=== PATIENT | male | born 1970 | race Caucasian/White ===

== ENCOUNTER 2016-12-02 13:00 | Outpatient (RCR) | payer OTHER ==
[~2016-12-02 13:00] MED LIST: CYCL10TA PO; LEXA1TAB2 PO; LISI-538 PO; PROZ20CA11 PO; VIST50CA PO; campral PO
== END 2016-12-08 ==
LOC: M PT 13:00
PROVIDERS: ATTEND Orthopaedic Surgery
DX: Z51.89 Encounter for other specified aftercare (principal); M48.06 Spinal stenosis, lumbar region

== ENCOUNTER 2017-04-09 21:41 | Emergency (ER) | payer OTHER ==
[~2017-04-09] VITALS: Ht 167.6 cm; Wt 100.0 kg
[2017-04-09] MEDS ORDERED: PERCOCET 5MG/325MG TAB PO ONE (22:30)
[2017-04-09] MEDS ORDERED: ONDANSETRON 4 MG ORAL DISINTEGRATING TAB (S0181) PO ONE (22:30)
--- NOTE | 2017-04-09 23:10 | REP ---
Clinical: Flank pain with history of nephrolithiasis. Comparison: 03/15/2016. Findings: Lung bases are relatively clear. Visualized heart and pericardium are normal. Hepatomegaly and fatty infiltration to the liver is appreciated without focal hepatic lesion identified. Spleen, pancreas, gallbladder, by lateral adrenal glands and kidneys are normal for noncontrast evaluation. Specifically, no acute perinephric stranding, hydroureteronephrosis, intrarenal, or obstructing ureteral calculi are identified. The enteric system is without obstruction or acute inflammatory process. Normal terminal ileum and appendix are identified in the right lower quadrant. Pelvis demonstrates normal bladder and mildly prominent prostate gland with parenchymal calcifications noted. No pelvic fluid or ascites. No free air. No intraperitoneal or retroperitoneal adenopathy. Abdominal aorta without aneurysm. Musculoskeletal structures demonstrate age-related degenerative changes along with evidence for posterior fixation at the L3-4 level. Impression: 1. Hepatomegaly and fatty infiltration to the liver without focal hepatic lesion. 2. Relatively normal appearance to the urinary tract system by noncontrast evaluation. 3. No acute abdominopelvic pathology appreciated. No free fluid. No mass. No free air. No adenopathy. Signed by Khari Zavala MD 04/09/2017 11:02 P
[2017-04-09 23:30] VITALS: BP 181/123
[2017-04-09] MEDS ORDERED: LISINOPRIL 20 MG TAB PO ONE (23:30)
[2017-04-09] MEDS ORDERED: ROBA500T PO (23:51)
[2017-04-10] MEDS ORDERED: METHOCARBAMOL 500 MG TAB PO ONE
[2017-04-10 00:25] VITALS: BP 146/100
== END 2017-04-10 00:26 | disposition home or self-care (01) ==
LOC: M ED 21:41
DX: M62.830 Muscle spasm of back (principal); I10 Essential (primary) hypertension
CPT/HCPCS: 74176; 96372; 99283; J3360

== ENCOUNTER → 2017-04-10 | Outpatient (REF) | payer OTHER ==
[~2017-04-10] MED LIST changes: +ROBA500T PO
[2017-04-10 13:15] LABS: MICROSCOPIC INDICATED? MAN NO (NO)
== END ==
LOC: M WUC 12:46
PROVIDERS: ATTEND Physician Assistant
DX: M54.5 Low back pain (principal)

== ENCOUNTER → 2017-07-30 | Outpatient (CLI) | payer OTHER ==
[2017-07-30 12:42] LABS: BLOOD UREA NITROGEN 10 MG/DL (7-18); CREATININE FOR GFR 0.89 MG/DL (0.70-1.30); GLOMERULAR FILTRATION RATE > 60.0 (>60)
== END ==
LOC: M LAB 11:11
PROVIDERS: ATTEND Orthopaedic Surgery
DX: M51.16 Intervertebral disc disorders with radiculopathy, lumbar region (principal)

== ENCOUNTER → 2017-12-02 | Outpatient (CLI) | payer OTHER ==
[~2017-12-02] MED LIST changes: -CYCL10TA PO; -LEXA1TAB2 PO; -LISI-538 PO; +PROHANCE 279.3MG/ML 15ML VIAL (A9576) As Ordered; +PROHANCE 279.3MG/ML 5ML VIAL (A9576) As Ordered; -PROZ20CA11 PO; -ROBA500T PO; -VIST50CA PO; -campral PO
== END ==
LOC: M RAD 08:44
DX: M96.1 Postlaminectomy syndrome, not elsewhere classified (principal); G89.29 Other chronic pain; M46.1 Sacroiliitis, not elsewhere classified; M51.26 Other intervertebral disc displacement, lumbar region; M48.061 Spinal stenosis, lumbar region without neurogenic claudication; M12.88 Other specific arthropathies, not elsewhere classified, other specified site; M51.06 Intervertebral disc disorders with myelopathy, lumbar region; M51.27 Other intervertebral disc displacement, lumbosacral region
CPT/HCPCS: A9576

== ENCOUNTER → 2018-11-10 | Outpatient (CLI) | payer OTHER ==
[~2018-11-10] MED LIST changes: +CYCL10TA PO; +LEXA1TAB2 PO; +LISI-538 PO; -PROHANCE 279.3MG/ML 15ML VIAL (A9576) As Ordered; -PROHANCE 279.3MG/ML 5ML VIAL (A9576) As Ordered; +PROZ20CA11 PO; +ROBA500T PO; +VIST50CA PO; +campral PO
[2018-11-10 14:15] LABS: BLOOD UREA NITROGEN 10 MG/DL (7-18); CREATININE FOR GFR 1.27 MG/DL (0.70-1.30); GLOMERULAR FILTRATION RATE > 60.0 (>60)
== END ==
LOC: M LAB 13:10
PROVIDERS: ATTEND Orthopaedic Surgery
DX: M51.36 Other intervertebral disc degeneration, lumbar region (principal)

== ENCOUNTER → 2018-11-13 | Outpatient (CLI) | payer OTHER ==
[~2018-11-13] MED LIST changes: +PROHANCE 279.3MG/ML 15ML VIAL (A9576) As Ordered ONE; +PROHANCE 279.3MG/ML 5ML VIAL (A9576) As Ordered ONE
--- NOTE | 2018-11-13 12:51 | REP ---
MR LUMBAR SPINE WITHOUT AND WITH CONTRAST: HISTORY: Post laminectomy syndrome. CONTRAST: ProHance 18 mL. COMPARISON: 12/02/2017 Decreased signal intensity on T2-weighted images is present in the L2-3 through L5-S1 intervertebral discs. The disc are decreased in height. These findings are consistent with disc degeneration. There is no disc bulge or herniation at the L1-2 level. The L1 nerve exit the neural foramina without compression. A diffuse disc bulge is present at the L2-3 level. There is hypertrophy of the ligamenta flava and posterior articulating facets. These findings produce mild central canal stenosis. A small right intraforaminal disc protrusion is present. There is compression of the right L2 nerve in the neural foramen. The left L2 nerve exits the neural foramen without compression. The patient is status post L3-4 anterior and posterior spinal fusion. Metal hardware and bone graft material are present. A diffuse disc bulge and small central disc protrusion are present. There is hypertrophy of the ligamenta flava and posterior articulating facets. These findings produce mild central canal stenosis. The L3 nerves exit the neural foramina without compression. A diffuse disc bulge is present at the L4-5 level. There is hypertrophy of the ligamenta flava and posterior articulating facets. These findings produce mild central canal stenosis. The L4 nerves exit the neural foramina without compression. A diffuse disc bulge and small disc protrusion central and eccentric to the right are present at the L5-S1 level. The disc protrusion abuts the thecal sac. There is hypertrophy of the posterior articulating facets. The L5 nerves exit the neural foramina without compression . The conus medullaris is normal in appearance terminating at the level of the L1-2 intervertebral disc. Increased signal intensity on T2-weighted images is present in the endplates of the L2 through L5 vertebral bodies. This represent degenerative change. There is no subluxation. IMPRESSION: 1. Mild central canal stenosis at the L2-3 level secondary to disc bulge, ligamentous and facet hypertrophy. A small right intraforaminal disc protrusion is present. There is compression of the right L2 nerve in the neural foramen. 2. The patient is status post L3-4 anterior and posterior spinal fusion. There is mild central canal stenosis secondary to disc bulge, disc protrusion, ligamentous and facet hypertrophy. There is anatomical alignment. 3. Mild central canal stenosis at the L4-5 level secondary to disc bulge, ligamentous and facet hypertrophy. 4. Diffuse disc bulge and small disc protrusion at the L5-S1 level. The disc protrusion abuts the thecal sac. There is no significant change compared to the previous study. Electronically Signed by Giovanny Wolfe MD 11/13/2018 01:29 P
== END ==
LOC: M RAD 10:09
PROVIDERS: ATTEND Orthopaedic Surgery
DX: M51.26 Other intervertebral disc displacement, lumbar region (principal); M48.061 Spinal stenosis, lumbar region without neurogenic claudication; M51.27 Other intervertebral disc displacement, lumbosacral region; Z98.1 Arthrodesis status
CPT/HCPCS: 72158; A9576

== ENCOUNTER → 2018-11-30 | Outpatient (REF) | payer OTHER ==
[~2018-11-30] MED LIST changes: -PROHANCE 279.3MG/ML 15ML VIAL (A9576) As Ordered ONE; -PROHANCE 279.3MG/ML 5ML VIAL (A9576) As Ordered ONE
[2018-11-30 18:16] LABS: BASO # 0.1 10^3/uL (0.0-0.2); BASO % 1.2 % (0.0-1.0); EOS # 0.4 10^3/uL (0.0-0.50); EOS % 4.4 % (0.0-3.0); HEMATOCRIT 38.2 % (42.0-52.0); HEMOGLOBIN 12.9 g/dl (13.5-17.5); LYMPH # 1.3 10^3/uL (1.5-4.5); LYMPH % 15.1 % (24.0-44.0); MEAN CORPUSCULAR HEMOGLOBIN 29.4 pg (27.0-33.0); MEAN CORPUSCULAR HGB CONC 33.8 g/dl (32.0-36.5); MONO # 0.9 10^3/uL (0.0-0.8); NEUTROPHILS # 5.7 10^3/uL (1.8-7.7); NEUTROPHILS % 66.5 % (36.0-66.0); PLATELET COUNT, AUTOMATED 337 10^3/uL (150-450); RED BLOOD COUNT 4.39 10^6/uL (4.30-6.10); WHITE BLOOD COUNT 8.5 10^3/uL (4.0-10.0)
[2018-11-30 18:30] LABS: ALBUMIN 3.8 GM/DL (3.2-5.2); ALT/SGPT 245 U/L (12-78); BILIRUBIN,TOTAL 0.5 MG/DL (0.2-1.0); BLOOD UREA NITROGEN 10 MG/DL (7-18); CALCIUM LEVEL 8.6 MG/DL (8.5-10.1); CARBON DIOXIDE LEVEL 22 MEQ/L (21-32); CHLORIDE LEVEL 107 MEQ/L (98-107); CHOLESTEROL LEVEL 290 MG/DL (<200); CHOLESTEROL RISK RATIO 5.686 (<5); GLOMERULAR FILTRATION RATE > 60.0 (>60); GLUCOSE, FASTING 122 MG/DL (70-100); HDL CHOLESTEROL 51 MG/DL (>40); NON-HDL-C 239 MG/DL; POTASSIUM SERUM 4.3 MEQ/L (3.5-5.1); SODIUM LEVEL 138 MEQ/L (136-145); THYROID STIMULATING HORMONE 0.892 uIU/ML (0.358-3.740); TOTAL PROTEIN 7.3 GM/DL (6.4-8.2); TRIGLYCERIDES LEVEL 425 MG/DL (<150)
[2018-11-30 18:32] LABS: TOTAL 25(OH) VITAMIN D 12.4 NG/ML (30.0-100.0)
[2018-11-30 19:01] LABS: HEMOGLOBIN A1c 6.1 %
== END ==
LOC: M LAB REF 16:55
PROVIDERS: ATTEND Nurse Practitioner Family
DX: I10 Essential (primary) hypertension (principal); Z13.9 Encounter for screening, unspecified

== ENCOUNTER → 2019-05-12 | Outpatient (CLI) | payer OTHER ==
[~2019-05-12] MED LIST changes: +ALEV220T22 PO; +BACL10TA2 PO; +GABA600T4 PO; +TRAM1CAP15 PO
== END ==
LOC: M LAB 10:47
PROVIDERS: ATTEND Orthopaedic Surgery
DX: Z01.818 Encounter for other preprocedural examination (principal)

== ENCOUNTER 2019-06-01 07:46 | Inpatient (IN) | payer OTHER ==
--- NOTE | 2019-05-21 15:11 | HPE ---
DATE OF ADMISSION: 06/01/2019 CHIEF COMPLAINT: Lumbar degenerative disc disease and spondylosis with radiculopathy. HISTORY OF PRESENT ILLNESS: Hi is a pleasant, 48-year-old male who has had a previous lumbar fusion at L3-4. He has progressed to involving L4-5. He has failed to improve with conservative treatment. He has elected for surgery for his continued symptoms. He has pain with weightbearing activities and his activities of daily living. X-rays of the lumbar spine show increasing degenerative disc disease at L4-5. He has consented for L3, L4 and L5 interbody fusion with revision at L3-4. This will be by Dr. Richard Hollis. Medical optimization was performed by Dr. Pilar Howard. ALLERGIES: NO KNOWN DRUG ALLERGIES. CURRENT MEDICATIONS: - Lisinopril 20 mg a day - Prozac 20 mg a day - hydroxyzine 50 mg a day - Aleve as needed - baclofen 10 mg three times a day - gabapentin 600 mg three times a day - tramadol 50 mg as needed PAST MEDICAL HISTORY: Includes hypertension and anxiety and depression. PAST SURGICAL HISTORY: Includes his previous L3-4 fusion. SOCIAL HISTORY: This gentleman is unemployed. Does not smoke. Rarely drinks alcohol. FAMILY HISTORY: Noncontributory. REVIEW OF SYSTEMS: This patient denies chest pain, heart palpitations, cough, wheezing, difficulty breathing and shortness of breath. He denies recent upper respiratory infection or urinary tract infection symptoms. He does complain of persistent pain in the low back with radiculopathy. PHYSICAL EXAMINATION: General: He is a well-nourished, well-developed, in no acute distress, alert male. He ambulates with a moderate limp favoring his left side. He is not using assistive devices. Vital signs: He is 67 inches tall, weighs 215 pounds with a temperature of 97.0, blood pressure 138/86, pulse of 65 and respirations of 18. Neck was supple without adenopathy or jugular venous distension. Lungs were clear to auscultation without rales or wheeze throughout. Heart: Regular rate and rhythm. Abdomen: Bowel sounds were present. Extremities/examination of the back revealed intact skin. He has pain in the low back. Deep tendon reflexes (DTRs) absent in the ankles, trace at the knees. Does have intact sensation to light touch. LABORATORY DATA: Hemoglobin 13.6. IMPRESSION: Lumbar degenerative disc disease with bilateral lower extremity radiculopathy status post L3-4 fusion. PLAN: Plan will be for revision of fusion at L3-4 and L4-5. This will be performed by Dr. Richard Hollis. For further information please see the medical record.
[~2019-06-01] VITALS: Ht 170.2 cm; Wt 100.2 kg
[~2019-06-01 07:46] MED LIST changes: +CelecoXIB (CeleBREX) 100 MG CAP PO ONE; +GABAPENTIN 300 MG CAP PO ONE; +LR 1,000 ML IV ONE; +PERCOCET 5MG/325MG TAB PO ONE
[2019-06-01] MEDS ORDERED: BUPIVACAINE/EPIN 0.25% 30 ML VIAL As Ordered ONE (11:14)
[2019-06-01] MEDS ORDERED: THROMBIN SOLN 20,000 UNITS KIT As Ordered ONE (11:14)
[2019-06-01] MEDS ORDERED: BUPIVACAINE HCL 0.5% 10 ML VIAL As Ordered ONE (11:15)
[2019-06-01] MEDS ORDERED: TRANEXAMIC ACID 100 MG/ML 10ML VIAL As Ordered ONE ×2 (11:15→15:01)
[2019-06-01] MEDS ORDERED: VANCOMYCIN HCL 500 MG/10 ML VIAL (J3370) As Ordered ONE (11:16)
[2019-06-01] MEDS ORDERED: EPINEPHrine INJ 1 MG/ML 1ML AMP As Ordered ONE ×2 (11:16→15:01)
[2019-06-01] MEDS ORDERED: BUPIVACAINE LIPOSOME/PF 1.3% 20ML VIAL (13.3MG/ML)(EXPAREL)(C9290 PER1MG) As Ordered ONE (11:16)
[2019-06-01] MEDS ORDERED: BACITRACIN PWD 50,000 UNITS VIAL As Ordered ONE (11:17)
[2019-06-01] MEDS ORDERED: ceFAZolin SOD 2 GM in IV 1 EA IV ONE (11:45)
[2019-06-01] MEDS ORDERED: ceFAZolin SOD 1 GM in D5W MINI-BAG PLUS 50 ML IV ONE (11:45)
[2019-06-01] MEDS ORDERED: ceFAZolin 1GM INJ (J0690 PER 500MG) As Ordered ONE ×2 (11:45→15:46)
[2019-06-01] MEDS ORDERED: ceFAZolin 2 GM/D5W 50 ML IV BAG (J0690 PER 500MG) As Ordered ONE (11:45)
[2019-06-01] MEDS ORDERED: PROPOFOL 200 MG/20 ML VIAL As Ordered ONE (13:26)
[2019-06-01] MEDS ORDERED: LIDOCAINE 2% INJ 100 MG/5 ML SDV (FOR ANES.) As Ordered ONE ×4 (13:26→15:36)
[2019-06-01] MEDS ORDERED: ROCURONIUM BROMIDE 50 MG/5 ML VIAL As Ordered ONE (13:26)
[2019-06-01] MEDS ORDERED: ONDANSETRON 4MG/2ML VIAL (J2405) As Ordered ONE (13:26)
[2019-06-01] MEDS ORDERED: dexameTHASONE 4 MG/ML 1ML VIAL (J1100) As Ordered ONE (13:26)
[2019-06-01] MEDS ORDERED: SUGAMMADEX SODIUM 500 MG/5 ML VIAL (BRIDION) As Ordered ONE ×2 (13:26→15:59)
[2019-06-01] MEDS ORDERED: fentaNYL 250 MCG/5 ML INJECTION (J3010) As Ordered ONE (13:26)
[2019-06-01] MEDS ORDERED: MIDAZOLAM INJ 2 MG/2 ML VIAL (J2250) As Ordered ONE (13:26)
[2019-06-01] MEDS ORDERED: KETAMINE HCL 200 MG/20 ML VIAL As Ordered ONE (13:27)
[2019-06-01] MEDS ORDERED: PHENYLephrine HCL 500 MCG/5 ML (100MCG/ML) SYRINGE (J2370) As Ordered ONE ×2 (13:27→14:18)
[2019-06-01] MEDS ORDERED: GLYCOPYRROLATE INJ 0.2 MG/ML 2 ML VIAL As Ordered ONE (13:54)
[2019-06-01] MEDS ORDERED: HYDROmorphone HCL 2 MG/ML 1ML VIAL (J1170) As Ordered ONE (15:32)
[2019-06-01] MEDS ORDERED: PHENYLEPHRINE INJ 10MG/ML VIAL (J2370) As Ordered ONE (16:41)
--- NOTE | 2019-06-01 18:29 | REP ---
HISTORY: Removal of hardware. Two spot views of the lumbar spine were obtained in my absentia and show transpedicular screws on the left at L3, L4 and L5 and transpedicular screws on the right at L4 and L5. There has been L3-4 and L4-5 fusion with a spacer in the L4-5 disc space. Electronically Signed by Yair Aguirre DO 06/01/2019 07:53 P
[2019-06-01] MEDS ORDERED: LR 1,000 ML IV SCH (18:45)
[2019-06-01] MEDS ORDERED: ONDANSETRON 4MG/2ML VIAL (J2405) IV PRN (18:45)
[2019-06-01] MEDS ORDERED: HYDROMORPHONE HCL 0.5 MG/ 0.5 ML SYRINGE (J1170 PER 1) IV PRN ×2 (18:45)
[2019-06-01] MEDS: fentaNYL 100 MCG/2 ML INJECTION (J3010) IV PRN ×2 (18:57→19:06)
[2019-06-01] MEDS ORDERED: ACETAMINOPHEN TAB 650MG DOSE (2X325MG) PO PRN (19:00)
[2019-06-01] MEDS ORDERED: PERCOCET 5MG/325MG TAB PO PRN (19:00)
[2019-06-01 21:30] VITALS: BP 158/96
[2019-06-01 22:00] VITALS: BP 158/92
[2019-06-01] MEDS: D5W/LR 1,000 ML IV SCH (22:00)
[2019-06-01 23:00] VITALS: BP 160/89
[2019-06-01] MEDS ORDERED: BACLOFEN 10 MG TAB PO PRN (23:45)
[2019-06-02] VITALS (8 sets, daily range): BP systolic 112–159; BP diastolic 66–97
[2019-06-02] MEDS ORDERED: ceFAZolin SOD 1 GM in D5W MINI-BAG PLUS 50 ML IV SCH ×2
[2019-06-02] MEDS: PERCOCET 5MG/325MG TAB PO PRN ×6 (00:47→22:38)
[2019-06-02] MEDS: GABAPENTIN 300 MG CAP PO SCH ×4 (00:47→20:19)
[2019-06-02] MEDS: METAMUCIL (PSYLLIUM) PACKET PO SCH ×3 (00:49→20:19)
[2019-06-02] MEDS: ceFAZolin SOD 2 GM in IV 1 EA IV SCH ×2 (01:30→08:20)
[2019-06-02] MEDS: D5W/LR 1,000 ML IV SCH ×2 (05:00→15:00)
[2019-06-02] MEDS ORDERED: PERC5TAB12 PO (06:18)
[2019-06-02] MEDS: FLUoxetine 20 MG CAP PO SCH (08:19)
[2019-06-02] MEDS: ASCORBIC ACID 500 MG TAB PO SCH (08:19)
[2019-06-02] MEDS: MIRALAX *UNIT DOSE* 17GM PACKET PO SCH (08:19)
[2019-06-02] MEDS: LISINOPRIL 20 MG TAB PO SCH (08:19)
--- NOTE | 2019-06-02 10:21 | RO ---
DATE OF PROCEDURE: 06/01/2019 PREOPERATIVE DIAGNOSIS: Failed back syndrome. Adjacent level degenerative changes at L4-5 below previous left lateral interbody fusion procedure at the 3-4 level along with bilateral radicular complaints. POSTOPERATIVE DIAGNOSIS: Failed back syndrome. Adjacent level degenerative changes at L4-5 below previous left lateral interbody fusion procedure at the 3-4 level along with bilateral radicular complaints. Includes lumbar spinal stenosis of L4-5. PROCEDURES PERFORMED: Includes the followin. Removal of pedicle screw hardware on the left side at L3-4, a left L4 unilateral laminectomy for decompression of thecal sac and exiting nerve root, L5 unilateral laminectomy for decompression of thecal sac and traversing nerve root, posterior spinal interbody fusion combined technique including interbody fusion at L4-5 intertransverse fusion on the left at L4-5, a posterior spinal fusion intertransverse L3-4 extending to the L4-5 fusion, placement of segmental instrumentation L3-4-5 on the left and percutaneous pedicle screw including instrumentation at L4-5 and the right use and placement of interbody biomechanical device at L4-5, right iliac crest morselized bone graft harvest through separate fascial incision. SURGEON: Dr. Hollis INTERNET MARKETING SPECIALIST: ANASTASIA Giang ANESTHESIA: General endotracheal. Estimated blood loss was less than 200 mL replaced with crystalloid. No complications. INDICATIONS: Progressive discomfort radiating to the lower extremities after initial relief of symptoms with interbody fusion via direct lateral technique at L3-4, MRI evidence of adjacent level degenerative change at 4-5. The patient has elected for operative intervention. Consent reviewed in detail including hillary discussion of the pathology involved the procedure proposed, alternatives including doing nothing and risks including but not limited to pain, failure, incomplete relief potential need for additional surgery, nerve injury, infection, bleeding blood loss, blood clots and other problems. The patient agreed to proceed with surgery. COMPONENTS USE: We utilized DePAgilenceer system size 7 mm screws on the right side placed percutaneous with a 45 mm connecting jovi. We utilized a DePuy 7 mm open screws on the patient's left side, size 40 mm at L5, size 45 mm at L4, size 45 mm at L3 and a 60 mm x 5 mm connecting jovi the appropriate end cap components. We utilized a four web 12 x 30 mm 6 degrees lordotic cage / interbody device which was packed with iliac crest morselized bone graft. We utilized 10 mL demineralized bone matrix putty as well. OPERATIVE COURSE: Identified in the holding area. Site and side verified brought to the operating room. Once anesthesia was administered he was positioned on the Lee frame for exposure of the lumbar spine. Once I and the rotary shear worker helper were comfortable with the patient's positioning the patient was sterilely prepped and draped in the usual fashion. Time-out was accomplished. The incision was based on his previous incisions as well as palpation of landmarks and was outlined in the midline with a marking pen infiltrated with 0.25% Marcaine with epinephrine and made with a 10 blade knife developed down through skin subcuticular tissues on the midline and to the posterior lumbar fascia posterior lumbar fasci. Posterior lumbar fascia was reflected off of the spinous processes 4, 5 and 3. The previous pedicle screw instrumentation which had been percutaneous was exposed and removed. The dissection continued exposing the facet complexes lamina and transverse processes of 3, 4, and 5 on the patient's left. Next the Leksell as were utilized to remove posterior lamina of 3, 4, and 5 and posterior aspect and this was retained for bone graft. Next, at this stage the operating microscope was sterilely draped and brought in. I utilized the high-speed bur to implement the left unilateral laminectomy of the L4 level extending to the bare area for undercutting of spinous processes. We removed the facet complex at 4-5 and extended the dissection to the bare area of five. In order to facilitate the PILF fusion and further decompress we removed the majority of the facette complex at 4-5. Ligamentum flavum was elevated using curettes and Kerrisons and removed exposing the thecal sac and traversing and exiting nerve root which were directly visualized. Next, Mr. Cabreratad assisted with suction levels allowing exposure. I opened the annulus of 4-5 using 11 blade. This material was removed. The smooth interbody spacers / distraction paddles where implemented beginning at 6 mm working up through 10 mm affectively distracting at 4-5 which appeared to be significantly mobile. Next, once this was accomplished conical reamers were utilized to remove endplate and disk material as well as rasps and ring curettes. Disk material was removed using pituitaries. Irrigation was accomplished. Bipolar cautery was utilized for hemostasis. Next, once this was accomplished, we appreciated that we had significantly decompressed the thecal sac exiting traversing nerve root, especially on the patient's left side. Next, at this stage we exposed the separate fascial incision. The right posterior-superior iliac spine open fascial tissue removed cortical bone using Leksell and utilized bone curettes utilized to remove morselized bone graft. Next the iliac crest harvest site was irrigated including irrigation with TXA. It was anesthetized using Exparel solution and closed over thrombin Gelfoam using interrupted stitch. Next current we next placed the percutaneous fiber screws at L4-5 and the patient's right side. This was accomplished using fluoroscopy the operating microscope was moved out we re-gowned with leaded apparel. Fluoroscopy was utilized to target the entry point at the pedicle on the AP and lateral plane at L4 and L5. Next, the incision was made over the pedicle 5 and the Viper instrument was then passed over the lateral aspect of pedicle five advanced in the usual fashion by tapping the needle potion into the pedicle of 5 under direct fluoroscopic visualization. This was verified in AP and lateral planes. Next, once the needle was in to the vertebral body at 5, the pedicle screw which was a size 45 x 7 was then advanced in the usual fashion through the pedicle of 5 and visualized for placement using fluoroscopy. Next, once this was accomplished. Attention was turned to the L4 pedicle which was cannulated in a similar fashion. We utilized to the needle here. Next, 45 mm x 7 mm screw was placed at L4 level. Next the distraction apparatus was installed and utilized to distract. Once a distraction apparatus was installed it distracted across 4-5 and visualized distracting using fluoroscopy. Next, distraction with the percutaneous screws across 4-5 faciliated, placement of the 10 mm trial at 4-5 for the interbody device. It was tamped into place and visualized fluoroscopically. Next we elected for a 30 mm x 10 mm 6 degrees four web cage. This was packed to the iliac crest bone graft. Also packed with demineralized bone matrix putty. Next, I utilized the bone funnel removed additional iliac crest bone graft and demineralized bone matrix putty into the disk space at 4-5. Next, this was spread using the 7 mm blunt paddle device. Next, once this was accomplished. Mr. Kelly utilized suction levels retractors to retract thecal sac and traversing nerve root and I then installed the 10 mm x 30 mm four web cage. Placement of cage was verified using fluoroscopy in AP and lateral plane cage was then disengaged. The distraction device was then disengaged and the percutaneous connecting jovi was then passed between the pedicle screws at 4 and 5 and the patient's right and secured using the end caps which were locked into place using torque counter torque method. Next, once this was accomplished. Mr. Kelly positioned himself on the patient's left side and used Hibb's retractors to expose the mammillary process of four and five on the patient's left. Next, I opened the mammillary process at five using the high-speed bur placed a pedicle finder which was placed using fluoroscopy. We then verified the tract at 5 using a ball-tip wire. Then we measured for a size 40 mm screw capped for a 7 x 40 mm screw. We again verified using ball-tip wire and placed the 7 mm x 40 mm screw, open method. Next we then verified the pedicle at L4 using ball-tip wire where the screw had been removed initially on the original procedure. We then placed a 45 mm x 7 mm screw. Next, at L3 we again verified the pedicle using ball-tip guide. I retapped this level using a 6-0 tap and placed a 7 mm x 45 mm screw. Next we then placed a connecting jovi at L3-4-5. The connecting jovi fit appropriately. Next, before securing taking jovi Mr. Kelly exposed the transverse processes of 3, 4, and 5 using the hips retractor and I placed additional morselized iliac crest bone along with demineralized bone matrix and local bone over the transverse processes of 3-4-5. Next we then placed the connecting jovi para 3-4-5 and installed the appropriate end caps which was secured using the torque counter torque device. Next, irrigation was accomplished in the midline and we inspected the interspace which was freed from debris. No CSF leak appreciated. Next TXA was allowed to stand for more than 1 minute in the interspace. Next we then made a small incision on the left lateral side of the surgical wound and passed a seven flat drain at the 4-5 level to prevent hematoma formation. Next, once this was accomplished all retractors were removed the wounds were inspected. Next, posterior lumbar fascia was then approximated with interrupted stitch. Chante fascia with interrupted stitch, deep dermis with interrupted stitch. The percutaneous incisions were reapproximated with interrupted stitch. Pernio dressing was applied. Next, final fluoroscopic images also were obtained in AP and lateral plane verifying pedicle screw placement on the left at 3-4-5 as well as in the right at 4-5 as well as cage placement. Next, at this stage the patient was then log-rolled to the hospital bed extubated and moved to recovery room in good condition. For further details please refer to medical record. Mr. Kelly was present and participate in the entirety of the case.
--- NOTE | 2019-06-02 10:26 | ECGEPIP ---
[facility] Test Date: 2019-06-01 Pat Name: CARRI JACOB Department: Room: [place] [address] Gender: Male Customer Service Consultant: RF : [id number] Requested By: Richard Bender Order Number: [id number] Reading MD: Heraclio Copeland Measurements Intervals [place] Rate: 111 P: 34 UT: 168 QRS: 2 QRSD: 90 T: 4 QT: 302 QTc: 412 Interpretive Statements Sinus tachycardia with marginal inferior ST/T-wave abnormalities. Repolarization abnormalities are not changed from 05/08/15 Electronically Signed on 06-02-2019 10:25:53 EDT by Heraclio Copeland
[2019-06-03] MEDS: D5W/LR 1,000 ML IV SCH (01:00)
[2019-06-03] MEDS: PERCOCET 5MG/325MG TAB PO PRN ×2 (05:48→09:52)
[2019-06-03 06:30] VITALS: BP 111/75
[2019-06-03 07:53] VITALS: BP 111/75
[2019-06-03] MEDS: MIRALAX *UNIT DOSE* 17GM PACKET PO SCH (07:53)
[2019-06-03] MEDS: LISINOPRIL 20 MG TAB PO SCH (07:53)
[2019-06-03] MEDS: GABAPENTIN 300 MG CAP PO SCH (07:53)
[2019-06-03] MEDS: ASCORBIC ACID 500 MG TAB PO SCH (07:53)
[2019-06-03] MEDS: FLUoxetine 20 MG CAP PO SCH (07:53)
[2019-06-03] MEDS: METAMUCIL (PSYLLIUM) PACKET PO SCH (07:55)
[2019-06-03] MEDS ORDERED: INFLUENZA QUADRIVALENT PF VACCINE 0.5ML SYRINGE (90686) IM ONE (09:00)
--- NOTE | 2019-06-07 08:57 | DSES ---
DATE OF ADMISSION: 06/01/2019 DATE OF DISCHARGE: HISTORY OF PRESENT ILLNESS: This is a 48-year-old male with prior history of L3-4 lumbar fusion. He is having difficulty at L4-5 and failed conservative treatment. He elected to proceed on summary he consented to proceed for L3, L4 and L4-5 inner body fusion with revision and L3-[address] Richard Hollis. Medical optimization was per Pilar Howard. OPERATION PERFORMED: Includes removal pedicle screw hardware and left side L3-4, a left L4 unilateral laminectomy and decompression of thecal sac and exiting nerve root, L5 unilateral laminectomy for decompression of thecal sac and transversing nerve root, posterior spinal inner body fusion combined technique involving interbody fusion L4-5 intertransverse fusion on the left at L4-5, posterior spinal fusion in traverse L3-4 extending to the L4-5 fusion, placement of segmental instrumentation L3-4 -4-5 on the left and percutaneous pedicle screw only instrumentation at L4-5 in the right use and placement of interbody bio mechanical device at L4-5, right iliac crest morselized bone graft harvest through separate fascial incision disease. HOSPITAL COURSE: The patient uneventfully underwent the above procedure under general anesthesia was returned to recovery comfortable. Percocet as needed pain with Gabapentin 300 mg three times a day three times a day. Diet as regular. Weightbearing as tolerated with walker. [facility]up at [facility] 4-7 days for wound check. The patient is encouraged to contact our office sooner with increased pain, numbness and tingling, weakness down the extremities, redness, drainage, fever greater than 101 or any further concerns.
== END 2019-06-03 11:40 | disposition home or self-care (01) | DRG 304 ==
LOC: M OR 07:46 → M MS5PR 19:45
PROVIDERS: ADMIT Orthopaedic Surgery; ATTEND Orthopaedic Surgery
PROC: 0QP004Z Removal of Internal Fixation Device from Lumbar Vertebra, Open Approach (ICD-10-PCS; 2019-06-01)
PROC: 01NB0ZZ Release Lumbar Nerve, Open Approach (ICD-10-PCS; 2019-06-01)
PROC: 0SG00AJ Fusion of Lumbar Vertebral Joint with Interbody Fusion Device, Posterior Approach, Anterior Column, Open Approach (ICD-10-PCS; principal; 2019-06-01 10:15)
DX: M51.16 Intervertebral disc disorders with radiculopathy, lumbar region (principal); I10 Essential (primary) hypertension; M47.26 Other spondylosis with radiculopathy, lumbar region; F41.9 Anxiety disorder, unspecified; F32.9 Major depressive disorder, single episode, unspecified; Z79.891 Long term (current) use of opiate analgesic; Z79.899 Other long term (current) drug therapy

== ENCOUNTER 2019-07-14 19:22 | Emergency (ER) | payer OTHER ==
[~2019-07-14] VITALS: Ht 167.6 cm; Wt 90.9 kg
[~2019-07-14 19:22] MED LIST changes: -CelecoXIB (CeleBREX) 100 MG CAP PO ONE; -GABAPENTIN 300 MG CAP PO ONE; -LR 1,000 ML IV ONE; +PERC5TAB12 PO; -PERCOCET 5MG/325MG TAB PO ONE
[2019-07-14 19:31] VITALS: BP 180/111
== END 2019-07-14 20:10 | disposition left against medical advice (07) ==
LOC: M ED 19:22
DX: Z53.21 Procedure and treatment not carried out due to patient leaving prior to being seen by health care provider (principal)

== ENCOUNTER 2019-09-12 20:45 | Inpatient (IN) | payer OTHER ==
[~2019-09-12] VITALS: Ht 170.2 cm; Wt 96.9 kg
[2019-09-12] MEDS ORDERED: ONDANSETRON 4MG/2ML VIAL (J2405) IV ONE (21:00)
[2019-09-12] MEDS ORDERED: NS 1,000 ML IV ONE ×2 (21:00→22:15)
[2019-09-12 21:19] LABS: BASO # 0.1 10^3/uL (0.0-0.2); BASO % 0.5 % (0.0-1.0); EOS # 0.1 10^3/uL (0.0-0.5); EOS % 0.7 % (0.0-3.0); HEMATOCRIT 40.1 % (42.0-52.0); HEMOGLOBIN 13.6 g/dl (13.5-17.5); LYMPH # 1.1 10^3/uL (1.5-5.0); LYMPH % 7.2 % (24.0-44.0); MEAN CORPUSCULAR HGB CONC 33.9 g/dl (32.0-36.5); MEAN CORPUSCULAR VOLUME 82.5 fl (80.0-96.0); MONO # 1.7 10^3/uL (0.0-0.8); MONO % 11.7 % (0.0-5.0); NEUTROPHILS # 11.5 10^3/uL (1.5-8.5); NEUTROPHILS % 78.3 % (36.0-66.0); PLATELET COUNT, AUTOMATED 293 10^3/uL (150-450); RED BLOOD COUNT 4.86 10^6/uL (4.30-6.10); WHITE BLOOD COUNT 14.7 10^3/uL (4.0-10.0)
[2019-09-12 21:52] LABS: ACETAMINOPHEN LEVEL < 2.0 UG/ML (10.0-30.0); ALT/SGPT 98 U/L (12-78); BILIRUBIN,DIRECT 0.2 MG/DL (0.0-0.2); BILIRUBIN,TOTAL 0.5 MG/DL (0.2-1.0); BLOOD UREA NITROGEN 51 MG/DL (7-18); CALCIUM LEVEL 6.3 MG/DL (8.5-10.1); CARBON DIOXIDE LEVEL 14 MEQ/L (21-32); CHLORIDE LEVEL 105 MEQ/L (98-107); CK-MB VALUE MASS 3.6 NG/ML (<3.6); CPK CREATINE PHOSPHOKINASE 88 U/L (39-308); CREATININE FOR GFR 5.15 MG/DL (0.70-1.30); ETHYL ALCOHOL (ETHANOL) < 0.003 % (0.000-0.010); GLOMERULAR FILTRATION RATE 12.8 (>60); GLUCOSE, FASTING 95 MG/DL (70-100); MB/CK RELATIVE INDEX 4.09 (< OR =4); POTASSIUM SERUM 4.1 MEQ/L (3.5-5.1); SALICYLATE LEVEL < 1.7 MG/DL (5.0-30.0); SODIUM LEVEL 135 MEQ/L (136-145); THYROID STIMULATING HORMONE 0.406 uIU/ML (0.358-3.740); TOTAL PROTEIN 6.2 GM/DL (6.4-8.2); TROPONIN I < 0.02 NG/ML (< 0.10)
[2019-09-12] MEDS ORDERED: LORazepam 2 MG/ML VIAL (J2060) IV STA (22:01)
--- NOTE | 2019-09-12 22:36 | REPVR ---
PROCEDURE INFORMATION: Exam: CT Head Without Contrast Exam date and time: 09/12/2019 8:56 PM Age: 49 years old Clinical indication: Altered mental status/memory loss TECHNIQUE: Imaging protocol: Computed tomography of the head without contrast. Radiation optimization: All CT scans at this facility use at least one of these dose optimization techniques: automated exposure control; mA and/or kV adjustment per patient size (includes targeted exams where dose is matched to clinical indication); or iterative reconstruction. COMPARISON: No relevant prior studies available. FINDINGS: Brain: Dural based 1.7 x 1.6 x 0.5 cm mass arising from the right side of the anterior falx, likely a small meningioma. No significant mass effect on the adjacent right frontal lobe. Brain is otherwise unremarkable. No signs of a recent infarction. Midline shift: No midline shift, mass, or hemorrhage. Ventricles: Normal. No ventriculomegaly. Bones/joints: Unremarkable. No acute fracture. Sinuses: Visualized sinuses are unremarkable. No fluid levels. Mastoid air cells: Visualized mastoid air cells are well aerated. Soft tissues: Unremarkable. IMPRESSION: 1. 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 Correlation with MRI is recommended if not previously evaluated. 2. Otherwise unremarkable head CT. No acute findings. Electronically signed by: Garrett Freire On 09/12/2019 22:37:58 PM
[2019-09-12] MEDS ORDERED: DULO60CA35 PO (23:42)
[2019-09-12] MEDS ORDERED: HYDR50TA70 PO (23:42)
[2019-09-12] MEDS ORDERED: LISI40TA PO (23:42)
[2019-09-12] MEDS ORDERED: PATIENT COMMENTS (23:48)
--- NOTE | 2019-09-12 23:49 | HPEPDOC ---
[facility] Medical History & Physical Date of Admission Sep 12, 2019 Date of Service: Sep 12, 2019 Primary Care Physician: Zach Ching MD Attending Physician: RHONDA LANDIN MD History and Physical TIME OF SERVICE: 11:55 PM CHIEF COMPLAINT: Fall HISTORY OF PRESENT ILLNESS: The patient was altered. The majority of the history was obtained from the ER provider and friends at the bedside. This is a 49-year-old male who was noted to be confused by neighbors earlier on today. Apparently somebody heard him fall and went to check on him and found him on the floor; the time he was confused and his speech was slurred. According to his friends has a history of chronic neck and back pain and recently had surgery. At the time of my exam, the patient was sedated after receiving lo razepam and unable to provide any history. REVIEW OF SYSTEMS: unable to obtain bc of AMS PAST MEDICAL/ SURGICAL HISTORY: Anxiety/depression Chronic hypertension Chronic Back pain s/p L3-L4/L4-L5 interbody fusion with revision of L3-L4 SOCIAL HISTORY: History of alcoholism FAMILY HISTORY: Hypertension ALLERGIES: Please see below. HOME MEDICATIONS: Please see below. PHYSICAL EXAMINATION: VITAL SIGNS: Please see below. GEN: Obese/sedated INTEGUMENT: Face is slightly flushed HEENT: mucus membranes dry CVS: RRR/NMRG LUNGS: He snoring/his lungs are clear to auscultation bilaterally on room air ABDOMEN: Contour ( obese) / soft & he doesn't grimace with deep palpation of the abdomen MSK/EXTREMITIES: There is no response to attempted Babinski NEURO: His pupils are pinpoint PSYCH: He is sedated. His Riley agitation sedation score is -5 LABORATORY DATA: See below. IMAGING: CT of the head showed " IMPRESSION: 1. 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 Correlation with MRI is recommended if not previously evaluated. " MICROBIOLOGY: Please see below. ASSESSMENT: Mr. Dimas is a 49-year-old male with a history of anxiety, depression, HTN, chronic back pain and alcoholism who was admitted for evaluation of encephalopathy and management of PENNY. PLAN: 1. Encephalopathy. We don't have an obvious source of infection, his drug screen serum ethanol, serum glucose, TSH, troponin and ammonia are negative. CT of the head again to find a meningioma; Adilson Dewey discussed these findings with Dr. Mohuidin in who did not feel that this would explain his altered mental status and didn't feel that the patient needed a lumbar puncture at this point in time. There the remaining possible causes include uremia vs postictal state vs drug intoxication that is not captured on our drug screening vs hypercarbia encephalitis. Plan: Admit to ICU for frequent neurochecks / treat PENNY and uremia/ f/u add on prolactin to rule out ABG, seizure, B12, B1, Mag, Phos / nothing by mouth with IV fluids/seizure precautions / hold Baclofen, Gabapentin, Hydroxizine 2. Hypocalcemia Possibly due to malabsorption, vitamin D deficiency, PTH suppression from alcohol, chronic renal insufficiency Albumin Corrected calcium is 7.1 His QTc is 406 Plan: he is on telemetry / because his corrected Ca is < 7.5 we will ask nursing staff to monitor for laryngeal spasms, and seizures / continuos pulse ox/ Ativan PRN for seizures / replete Ca / f/u vitamin D, Phosphorus, PTH, magnesium / Nephro consult in the morning 3. PENNY Possibly due to prerenal azotemia due to dehydration, NSAIDs, ACEI or possibly ATN due to NSAIDs Plan: Is/Os, daily weights / IVF / f/u ulytes for FENa , PTH, phosphorus, urine Pro:Cr / renal US / hold NSAIDs and LINDSEY inhibitor 4. Leukocytosis. Possibly reactive because the work-up for infection including UA, chest x-ray and influenza are negative. Plan: Monitor vitals/ Follow up blood cultures 5. Concurrent non AG metabolic acidosis with high AG acidosis Albumin corrected anion gap is 18.5. Albumin corrected delta gap is 6.5 Albumin corrected delta ratio is 0.65 Possible causes of anion gap metabolic acidosis include uremia. The concurrent non-anion gap metabolic acidosis may be due to RTA or GI loss ? Plan: Follow-up urine electrolytes to determine urine anion gap if it is negative then the NAGMA is likely due to GI loss & f/u w Nephro 6. Meningioma Plan: Follow-up MRI of the brain in the morning 7. Transaminitis. Plan: Follow-up liver ultrasound / trend LFTs / follow-up hepatitis panel 8. Obesity BMI 34.6. This complicates care DVT PROPHYLAXIS: Lovenox DISPOSITION: possibly home after more than 2 midnight's stay Vital Signs Vital Signs Date Time Temp Pulse Resp B/P (MAP) Pulse Ox O2 Delivery O2 Flow Rate FiO2 09/12/19 21:30 96.7 09/12/19 21:15 82 17 102/52 (69) 98 Laboratory Data Labs 24H Laboratory Tests 2 09/12/19 21:11: Immature Granulocyte % (Auto) 1.6, Neutrophils (%) (Auto) 78.3H, Lymphocytes (%) (Auto) 7.2L, Monocytes (%) (Auto) 11.7H, Eosinophils (%) (Auto) 0.7, Basophils (%) (Auto) 0.5, Neutrophils # (Auto) 11.5H, Lymphocytes # (Auto) 1.1L, Monocytes # (Auto) 1.7H, Eosinophils # (Auto) 0.1, Basophils # (Auto) 0.1, Nucleated Red Blood Cells % (auto) 0.0, Anion Gap 16, Glomerular Filtration Rate 12.8L, Lactic Acid Level 0.9, Calcium Level 6.3L, Total Bilirubin 0.5, Direct Bilirubin 0.2, Aspartate Amino Transf (AST/SGOT) 59H, Alanine Aminotransferase (ALT/SGPT) 98H, Alkaline Phosphatase 151H, Ammonia 19, Total Creatine Kinase 88, Creatine Kinase MB 3.6, Creatine Kinase MB Relative Index 4.09H, Troponin I < 0.02, Total Protein 6.2L, Albumin 3.0L, Albumin/Globulin Ratio 0.94L, Thyroid Stimulating Hormone (TSH) 0.406, Salicylates Level < 1.7L, Acetaminophen Level < 2.0L, Ethyl Alcohol Level < 0.003 09/12/19 21:41: Bedside Glucose (Misc Panel) 121H 09/12/19 23:20: Urine Color DEMAR, Urine Appearance CLOUDYH, Urine pH 5.0, Urine Specific [place] 1.014, Urine Protein 2+H, Urine Glucose (UA) 2+H, Urine Ketones NEGATIVE, Urine Blood 3+H, Urine Nitrite NEGATIVE, Urine Bilirubin NEGATIVE, Urine Urobilinogen 0.2, Urine Leukocyte Esterase NEGATIVE, Urine WBC (Auto) 9H, Urine RBC (Auto) TNTCH, Urine Hyaline Casts (Auto) 0, Urine Bacteria (Auto) 1+H, Urine Squamous Epithelial Cells 0, Urine Amorphous Sediment SMALLH, Urine Sperm (Auto) CBC/BMP Laboratory Tests 09/12/19 21:11 Home Medications Scheduled Baclofen (Baclofen) 10 Mg Tablet, 10 MG PO QHS Duloxetine HCl (Duloxetine HCl) 60 Mg Capsule.dr, 60 MG PO DAILY Gabapentin (Gabapentin) 600 Mg Tablet, 600 MG PO BID Lisinopril (Lisinopril) 40 Mg Tablet, 40 MG PO DAILY Scheduled PRN Hydroxyzine HCl (Hydroxyzine HCl) 50 Mg Tablet, 50 MG PO BID PRN for ANXIETY Naproxen Sodium (Aleve) 220 Mg Tablet, 220 MG PO Q4HP PRN for PAIN Miscellaneous Medications [Patient Comments] PATIENT UNABLE TO ANSWER QUESTIONS ABOUT HIS MEDICATION HISTORY. ADULTS PRESENT UNABLE TO ANSWER QUESTIONS OTHER THAN TO CONFIRM PHARMACY Allergies Coded Allergies: No Known Allergies (Unverified , 07/14/19) A-FIB/CHADSVASC A-FIB History Current/History of A-Fib/PAF?: No Current PO Anticoag Therapy: No RHONDA LANDIN MD Sep 12, 2019 23:49
[2019-09-12 23:53] LABS: AMPHETAMINES LEVEL URINE NEGATIVE (NEGATIVE); BARBITURATES URINE NEGATIVE (NEGATIVE); BENZODIAZEPINES URINE NEGATIVE (NEGATIVE); CANNABINOIDS URINE NEGATIVE (NEGATIVE); COCAINE METABOLITE URINE NEGATIVE (NEGATIVE); METHADONE URINE NEGATIVE (NEGATIVE); OPIATES URINE NEGATIVE (NEGATIVE); PHENCYCLIDINE URINE NEGATIVE (NEGATIVE)
[2019-09-13] VITALS (38 sets, daily range): BP systolic 73–143; BP diastolic 45–97
[2019-09-13 00:49] LABS: INFLUENZA A AMPLIFICATION NEGATIVE (NEGATIVE); INFLUENZA B AMPLIFICATION NEGATIVE (NEGATIVE)
[2019-09-13] MEDS ORDERED: D5W/0.9% SODIUM CHLORIDE 1,000 ML IV SCH (01:00)
[2019-09-13 01:55] LABS: PHOSPHORUS LEVEL 6.4 MG/DL (2.5-4.9)
[2019-09-13 02:38] LABS: MAGNESIUM LEVEL 2.1 MG/DL (1.8-2.4)
[2019-09-13] MEDS ORDERED: CALCIUM GLUCONATE 1,000 MG in D5W MINI-BAG PLUS 100 ML IV ONE ×2 (03:00→10:00)
[2019-09-13] MEDS ORDERED: NS 1,000 ML IV ONE (03:00)
[2019-09-13 03:17] LABS: CHLORIDE,RANDOM URINE < 10 MEQ/L; POTASSIUM RANDOM URINE 46.3 MEQ/L; SODIUM,RANDOM URINE 21 MEQ/L; TOTAL PROTEIN,RANDOM URINE 224.5 MG/DL (0.0-12.0); UREA NITROGEN RANDOM URINE 250 MG/DL
--- NOTE | 2019-09-13 03:46 | REP ---
Clinical: Altered mental status . Comparison: 07/06/2014 . Findings: The mediastinum and cardiac silhouette are stable and within normal limits for portable technique. The lung miller are clear without acute consolidation, effusion, or pneumothorax. Skeletal structures are intact. Impression: No acute cardiopulmonary process appreciated. Electronically Signed by Khari Zavala MD 09/13/2019 03:38 A
[2019-09-13 05:05] LABS: HEMATOCRIT 33.8 % (42.0-52.0); HEMOGLOBIN 11.7 g/dl (13.5-17.5); MEAN CORPUSCULAR HEMOGLOBIN 28.4 pg (27.0-33.0); MEAN CORPUSCULAR HGB CONC 34.6 g/dl (32.0-36.5); PLATELET COUNT, AUTOMATED 255 10^3/uL (150-450); RED BLOOD COUNT 4.12 10^6/uL (4.30-6.10); WHITE BLOOD COUNT 10.6 10^3/uL (4.0-10.0)
[2019-09-13 05:30] LABS: ALBUMIN 3.2 GM/DL (3.2-5.2); BILIRUBIN,TOTAL 0.5 MG/DL (0.2-1.0); CALCIUM LEVEL 7.3 MG/DL (8.5-10.1); CREATININE FOR GFR 5.88 MG/DL (0.70-1.30); GLOMERULAR FILTRATION RATE 10.9 (>60); POTASSIUM SERUM 4.3 MEQ/L (3.5-5.1); TOTAL PROTEIN 6.5 GM/DL (6.4-8.2)
[2019-09-13] MEDS: LORazepam 2 MG/ML VIAL (J2060) IV PRN ×2 (05:43→17:32)
[2019-09-13 07:03] LABS: ABG BASE EXCESS -11.9 (-2.0-2.0); ABG HCO3 14.3 MEQ/L (22.0-26.0); ABG O2 SATURATION 96.5 % (95.0-99.0); ABG PARTIAL PRESSURE CO2 33.5 mmHg (35.0-45.0); ABG PARTIAL PRESSURE O2 95.1 mmHg (75.0-100.0); ABG STANDARD HCO3 15.1 MEQ/L (22.0-26.0); ABG TOTAL CO2 15.3 MEQ/L (22.0-29.0)
[2019-09-13 07:05] LABS: ABG pH (ARTERIAL) 7.248 UNITS (7.350-7.450)
[2019-09-13 08:36] LABS: INR 1.15; PROTHROMBIN TIME 14.4 SECONDS (11.8-14.0)
[2019-09-13] MEDS ORDERED: ENOXAPARIN 30 MG/0.3 ML SYR (J1650) SC SCH (09:00)
[2019-09-13] MEDS: HEPARIN SOD (PORCINE) 5000 UNITS/ML VIAL (J1644 PER 1000UNITS) SQ SCH ×2 (09:00→20:11)
[2019-09-13 10:49] LABS: PROLACTIN 19.4 NG/ML (2.1-17.7); PTH INTACT 196.1 PG/ML (18.5-88.0); TOTAL 25(OH) VITAMIN D 11.6 NG/ML (30.0-100.0)
[2019-09-13 11:05] LABS: CALCIUM LEVEL 7.4 MG/DL (8.5-10.1); CREATININE FOR GFR 5.53 MG/DL (0.70-1.30); GLOMERULAR FILTRATION RATE 11.7 (>60); POTASSIUM SERUM 4.5 MEQ/L (3.5-5.1)
[2019-09-13 11:16] LABS: COMPLEMENT C3 114 MG/DL (90-180); COMPLEMENT C4 29 MG/DL (10-40)
[2019-09-13 11:20] LABS: APPEARANCE, URINE CLOUDY (CLEAR); BACTERIA, URINE AUTO 1+ (NEGATIVE); BILIRUBIN, URINE AUTO NEGATIVE (NEGATIVE); BLOOD, URINE BLOOD 3+ (NEGATIVE); COLOR, URINE YELLOW (YELLOW); GLUCOSE, URINE (UA) AUTO 2+ mg/dL (NEGATIVE); KETONE, URINE AUTO NEGATIVE (NEGATIVE); LEUKOCYTE ESTERASE, URINE AUTO TRACE (NEGATIVE); MUCUS, URINE SMALL (NEGATIVE); NITRITE, URINE AUTO NEGATIVE (NEGATIVE); PROTEIN, URINE AUTO 1+ mg/dL (NEGATIVE); RBC, URINE AUTO 51 /HPF (0-3); SPECIFIC GRAVITY URINE AUTO 1.011 (1.002-1.035); SQUAMOUS EPITHELIAL CELL UR AU 0 /HPF (0-6); URIC ACID CRYSTALS SMALL; UROBILINOGEN, URINE AUTO 0.2 mg/dL (0.0-2.0); WBC, URINE AUTO 8 /HPF (0-3)
[2019-09-13 11:26] LABS: HEPATITIS A ANTIBODY IGM NEGATIVE (NEGATIVE); HEPATITIS B CORE ANTIBODY IGM NEGATIVE (NEGATIVE); HEPATITIS B SURFACE ANTIGEN NEGATIVE (NEGATIVE); HEPATITIS C VIRUS ABY INDEX < 0.0 INDEX (<0.8)
[2019-09-13 11:43] LABS: PHOSPHORUS LEVEL 7.1 MG/DL (2.5-4.9)
[2019-09-13] MEDS ORDERED: THIAMINE HCL 200 MG/2 ML VIAL (J3411) IM SCH ×2 (12:00→16:00)
[2019-09-13] MEDS ORDERED: NS IV ONE ×2 (12:15→13:00)
[2019-09-13] MEDS ORDERED: FOMEPIZOLE IV ONE ×2 (12:15→13:00)
--- NOTE | 2019-09-13 12:32 | ECGEPIP ---
[facility] - ED Test Date: 2019-09-12 Pat Name: CARRI JACOB Department: Room: [place] [address] Gender: Male Live In Caregiver: alee : 1970 Requested By: HELADIO CONWAY Order Number: [id number] Reading MD: Sohan Cain Measurements Intervals [place] Rate: 79 P: 16 FL: 183 QRS: 12 QRSD: 110 T: 10 QT: 372 QTc: 426 Interpretive Statements SINUS RHYTHM NSTTW ABNORMALITIES SIMILAR TO 06/01/19 Electronically Signed on 09-13-2019 12:32:26 EST by Sohan Cain
[2019-09-13] MEDS ORDERED: FOLIC ACID 50 MG in NS 50 ML IV SCH ×3 (13:00→16:00)
--- NOTE | 2019-09-13 13:03 | REP ---
Complete abdominal ultrasound for PENNY, transaminase and acute encephalopathy: There is no cholelithiasis, gallbladder wall thickening or pericholecystic fluid. There is no intrahepatic or extrahepatic biliary duct dilatation. The common biliary duct measures 5.3 mm in diameter. The liver is enlarged measuring 21.6 cm craniocaudad in the midclavicular line. The hepatic parenchyma is hyperechoic compatible with hepato steatosis/hepatocellular disease. The pancreas is obscured by bowel gas. The spleen is normal size measuring 11.7 x 9.2 x 4.7 cm. The right kidney measures 10.5 x 4.8 x 4.9 cm. Left kidney measures 10.4 x 4.5 x 5.7 cm. The kidneys are normal size. There is mild hydronephrosis bilaterally. There is a 13.9 ml echogenic focus in the right renal lower pole and a 5.4 mm echogenic focus in the left renal lower pole. These are likely renal calculi. No solid or cystic renal masses are identified. The proximal abdominal aorta is obscured by bowel gas. The mid abdominal aorta measures 1.6 cm in diameter. The distal abdominal aorta measures 1.5 cm in diameter. No free fluid is identified. The the study is technically difficult as the patient is unresponsive and unable to be located for the examination. Impression: Hepato steatosis/hepatocellular disease. No biliary duct dilatation. Mild bilateral hydronephrosis. There is a renal calculus calculus in each kidney. Electronically Signed by Justus Sky MD 09/13/2019 12:55 P
--- NOTE | 2019-09-13 13:23 | CR ---
DATE OF CONSULTATION: 09/13/2019 NEPHROLOGY CONSULTATION FOR: Leticia Lau MD REASON FOR CONSULTATION: Acute renal failure and hypocalcemia. HISTORY OF PRESENT ILLNESS: Mr. Dimas is a 49-year-old gentleman who was admitted to [facility] last evening due to a fall at home. Apparently, his neighbors brought him as they heard him falling and he was unresponsive. Patient was unable to provide any information. He does have known history of anxiety and depression. It remains unclear as to what caused the fall at home. Apparently, no obvious trauma was noticed and CAT scan of head was unremarkable. PAST MEDICAL AND SURGICAL HISTORY: Significant for anxiety, depression, chronic hypertension, and chronic back pain. Past surgical history is significant for vertebral fusion at L3 and L4 and L4 and L5 levels. MEDICATIONS: His home medications according to the admission records include: - baclofen 10 mg at bedtime - Duloxetine 60 mg daily - gabapentin 600 mg twice a day - lisinopril 40 mg daily - hydroxyzine 50 mg twice a day as needed for anxiety - naproxen 220 mg every 4 hours as needed, pain ALLERGIES: Patient has NO KNOWN DRUG ALLERGIES. PERSONAL AND SOCIAL HISTORY: Patient does have history of alcohol use but no history of IV drug abuse noted according to his admission history. Family history is also significant for hypertension, though patient himself is unable to provide any information. REVIEW OF SYSTEMS: Patient is unresponsive at present and not able to provide any information. PHYSICAL EXAMINATION: This is a healthy-looking, well-built young male, laying in the bed in intensive care unit. Temperature is 97.2 degrees Fahrenheit, heart rate 83 per minute and respiratory rate 18 per minute. Blood pressure 106/58 mmHg and oxygen saturation 97% on room air. His head is atraumatic. Pupils are small and slightly reactive to light. Sclera is anicteric. Neck is supple and jugular venous distention (JVD) is not clinically visible. Heart sounds are regular and lungs have bilateral good air entry. Abdomen protuberant, soft and nontender, and bowel sounds are present. Extremities without any cyanosis or clubbing. Neurologically, patient is completely unresponsive even to painful stimuli. Skin has mild cracks on his feet but no other ulcers or skin rash. LABORATORY DATA: On admission WBC count of 14.7, hemoglobin 13.6 and hematocrit 40.1. Platelets 293. This morning WBC count is 10.6, hemoglobin 11.7 and hematocrit 33.8. Platelets 255. A blood gas this morning showed a pH of 7.248, pCO2 33.5, pO2 95 and bicarbonate 15. Last evening his sodium was 135 and potassium 4.1. BUN was 51 and creatinine 5.15. CO2 14 and chloride 105. Calcium was 6.3 and phosphorus 6.4. Total protein 6.2 and albumin 3.0. A TSH level 0.406. This morning sodium 136, potassium 4.5, CO2 15, BUN 61 and creatinine 5.88. Calcium level 7.3. There is another chemistry repeated today, which showed calcium 7.4 and phosphorus 7.1, while BUN 61 and creatinine 5.53. Lactic acid level 0.8. A PTH level has now returned back at 196 and prolactin level 19.4. Vitamin B12 367 and 25-hydroxy vitamin D level of 11.6. Urinalysis showed 2+ protein, 2+ glucose and 3+ blood with too numerous to count RBCs. Toxicology screen was negative. Salicylate level less than 1.7 and acetaminophen level less than 2.0. Ethyl alcohol less than 0.003. CT scan of head done without contrast was consistent with probable right anterior cell sign meningioma, otherwise unremarkable head CT scan. Chest x-ray was also negative for any acute infiltrate or effusion. PROBLEMS: 1. Acute renal failure. Patient had a baseline creatinine of 1.1 in November of 2018. Acute renal failure could be multifactorial. He was on angiotensin-converting enzyme (LINDSEY) inhibitor and there was a possibility of dehydration. However, he has received 3 liters of normal saline so far since arrival. He is currently receiving IV normal saline at 120 mL/h and clinically does not look dehydrated. He is making good amount of urine and kidney function has not changed much. At this point, there is no emergent need for dialysis and we will continue to monitor his kidney function closely while other workup is in progress. 2. Metabolic acidosis most likely related to acute renal failure, and we will switch his IV fluid to bicarbonate infusion at 100 mL/h. His chemistry will be repeated again this afternoon. 3. Hypocalcemia. Probably related to renal failure as the patient does have elevated intact PTH level. He has been given intravenous calcium and calcium level has already improved. At this point, we will continue to monitor closely. 4. Proteinuria and hematuria. Concerned about possibility of acute glomerulonephritis as he does have significant proteinuria with spot urine protein of about 220 mg/dL. He had a catheterized specimen which could account for hematuria but not proteinuria. We will get vasculitis workup including KATYA, anti-DNA, ANCA, antiphospholipid antibodies and anticardiolipin antibodies. We will hold off on any steroid treatment at this point due to altered mentation and need for further workup for possible infective causes. 5. Altered mentation. Etiology remains uncertain. I do not feel that it is uremia causing altered mentation. Other causes like infections or vasculitis will need to be ruled out. He is already scheduled for a spinal tap. We will wait for those results. Thank you for involving me in the care of Mr. Dimas. I will follow him along with you.
--- NOTE | 2019-09-13 13:52 | REP ---
MRI BRAIN WITHOUT CONTRAST: HISTORY: Encephalopathy, meningioma, acute kidney injury. Comparison CT study is from September 12, 2019. TECHNIQUE: Axial and sagittal imaging planes are utilized for T1- and T2-weighted scans. Sequences include spin-echo, fast spin echo, FLAIR, and diffusion weighted sequences. MRI FINDINGS: There is some motion artifact. No bony calvarial lesion is seen. Craniocervical junction and upper cervical cord are normal in appearance. Diffusion weighted scans show no evidence of restricted diffusion to suggest acute ischemia. There is no evidence of intracranial hemorrhage. There is localized thickening along the right side of the anterior falx in the right frontal region consistent with a small right falcine meningioma. This measures 17 mm anteroposterior x 4 mm in greatest thickness. This corresponds to the CT findings. No other extra-axial mass or fluid collection is seen. Otero-white differentiation pattern is normal. No intra-axial mass lesion is seen. There is no evidence of midline shift. IMPRESSION: No acute intracranial abnormality. Small right falcine meningioma corresponding to the CT findings. Otherwise unremarkable. There is a mucous retention cyst in the right maxillary sinus. Electronically Signed by Santosh De Paz MD 09/13/2019 03:20 P
--- NOTE | 2019-09-13 14:13 | REP ---
MRI LUMBAR SPINE WITHOUT CONTRAST: HISTORY: Encephalopathy. Comparison study November 13, 2018. TECHNIQUE: Sagittal and axial T1- and T2-weighted scans are acquired in the usual fashion with and without fat saturation. Sequences include spin echo, turbo spin echo, and STIR imaging sequences. MRI FINDINGS: There is extensive magnetic field susceptibility artifact emanating from lumbar spine fusion hardware. The patient is status post trans pedicle screw placement on the left at L3, L4, and L5, and on the right at L4 and L5. Interbody cage fusion is seen at 4-5 and 3-4. The right-sided fusion hardware is new compared with the November 13, 2018 study. The effusion on the left now includes L4-5 as well as L3-4. Alignment is normal. Lumbar vertebral body heights are preserved. The tip of the conus medullaris is normal in position and appearance at L1. No extra vertebral abnormality is observed. Axial and sagittal images at L1-2 show no significant finding. At L2-L3, there is mild degenerative disc narrowing and mild diffuse disc bulging is present. There is right foraminal and right lateral disc protrusion at L2-3, which appears unchanged from the comparison study. There is mild developmental central canal stenosis at L2-3 also unchanged. Midline AP dimension of the thecal sac at this level is 8.4 mm. At L3-4, there is mild central canal stenosis due to broad-based central disc protrusion and developmentally small canal size. There is mild ligamentum flavum hypertrophy. Midline AP dimension of the thecal sac at the fused L3-4 disc level is 6.9 mm. Neural foramina appear adequate. At the L4-5, there is degenerative disc narrowing. Mild posterior osteophytic ridging and diffuse disc bulging is again seen unchanged. Canal size is mildly narrowed at this level as well. This is unchanged. At L5 S1 there is facet hypertrophy bilaterally. There is diffuse disc bulging effacing the ventral epidural fat and contacting the ventral margin of the thecal sac. These findings are unchanged as well. IMPRESSION: Interval lumbar spine fusion revision surgery with multilevel central canal stenosis. Right foraminal and lateral disc protrusion L2-3 unchanged. Findings otherwise stable. Electronically Signed by Santosh De Paz MD 09/13/2019 03:21 P
[2019-09-13] MEDS ORDERED: LIDOCAINE 1% MDV 20ML VIAL As Ordered ONE (14:18)
[2019-09-13] MEDS: SODIUM BICARBONATE 150 MEQ in D5W 1,000 ML IV SCH (15:20)
--- NOTE | 2019-09-13 17:16 | REP ---
Procedure: Fluoro guidance for lumbar puncture. The procedure was performed under the direct supervision of Dr. De Paz. The risks and benefits of the procedure were explained and informed consent was obtained by the healthcare proxy. The L3-4 interspace was localized using fluoroscopic guidance. The skin was prepped and draped in a sterile fashion. 1% lidocaine was used as a local anesthetic. Using fluoroscopic guidance a 22-gauge spinal needle was inserted and advanced into the thecal sac, however, no fluid was able to be obtained. Multiple attempts were tried at the L2-3, L3-4 and L4-5 levels but no fluid was able to be withdrawn. The patient tolerated the procedure well and there were no immediate complications. 0.1 minutes of fluoro time was utilized for this procedure. Electronically Signed by TERRY Sandhu 09/13/2019 04:36 P Electronically Signed by Santosh De Paz MD 09/13/2019 05:07 P
--- NOTE | 2019-09-13 18:00 | IPNPDOC ---
Date Seen The patient was seen on 09/13/19. Progress Note SUBJECTIVE: Continued to be AMS, answered questions appropriately but was repetitive with answers. Appeared flush, somnolent, was difficult to arouse until hard sternal rub, was not agitated and was not consistently oriented to place. OBJECTIVE PHYSICAL EXAMINATION: VITAL SIGNS: Please see below. GENERAL: Somnolent 49 yr old male only arousable from sleep with HARD sternal rub. Not appropriately answering questions, palilalia HEENT: Atraumatic, normacephalic, flush skin, pupils were 4mm bilaterally, moist mucus membranes, no JVD CARDIOVASCULAR: S1 S2 regular no additional heart sounds appreciated RESPIRATORY: Clear to auscultation bilaterally no wheezes, rhonchi or rales ABDOMINAL: Bowel sounds present abdomen soft and nontender, minimally distended with no rebounding or guarding EXTREMITIES: No clubbing cyanosis or edema, saline lock on R leg wrapped with gauze NEUROLOGICAL: Somnolent, palilalia, unable to have a conversation for unable to follow commands appropriately, alert not oriented. Unable to assess strength and sensation in UE and LE. LABORATORY DATA, MICROBIOLOGY: Please see below. IMAGING STUDIES: Head CT: Impression: 1. 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 Correlation with MRI is recommended if not previously evaluated. 2. Otherwise unremarkable head CT. No acute findings. Chest X-Ray: Impression: No acute cardiopulmonary process appreciated. ASSESSMENT AND PLAN: This is a -year-old [GENDER] with . PROBLEMS: 1.Acute metabolic Encephalopathy possibly secondary alcohol withdrawal vs post ictal after unwitnessed seizure. Prolactin level was high Will rule out meningitis/ encephalitis. ordered Lumber puncture. Ethyl alcohol levels undetectable, ethylene glycol levels pending but unlikely due to osmolality, salicylates negative, methanol pending, lactate negative, no DKA. Poison control has been following the patient because renal function has not been improving, they recommended x1 dose of Antizol and get ethylene glycol and methanol levels. This has been sent out and return roughly 12 hrs. Continue thiamine and folic acid injections. CT brain of did show small meningioma, MRI pending. Unsure if this is contributing to the problem. Pending EEG results we will see if neurology consult is indicated. Prolactin levels are slightly elevated at 19.4, which possibly can be seen in alcohol related seizures. Lumbar puncture pending. 2. History of alcohol abuse. Abdominal u/s shows significant hepatic steatosis. Spoke with patients mom who stated patient has a history of alcohol abuse. She is unsure of when his last drink was. She saw him last and believes he was sober at that time so it has been greater than [address] him on CIWA protocol and Ativan 2 mg IV q2hp PRN agitation/seizures because he is unable to swallow. Maddrey Discriminant Function <32, indicates good prognosis, prednisolone therapy not indicated. 3. PENNY with metabolic acidosis Kidney function in December 2018 was within normal limits. Patient did have a recent surgery in May which his mom believes he was taking Aleve for pain control for she took away his narcotics. NSAIDs can play a role in the PENNY. Nephrology has been consulted. Nephrology workup currently pending. We will hold nephrotoxic drugs, continue IV fluids and we appreciate nephrologys recommendations. 4. Bilateral non-obstructing nephrolithiasis in the lower poles. 13.9 mm in right lower pole, 5.4 mm in left lower pole. Right pole is pretty significant in size, once problem #1 is addressed will f/u if urology is needed or not. 5. Back pain status post laminectomy May 2019 On exam he did exhibit some tenderness. MRI lumbar back was ordered, will f/u, hold pain medicine and muscle relaxants due to problem #1. 6. Secondary hyperparathyroidism Possibly secondary to renal disease. Ionized calcium slightly low at 4.4. PTH elevated at 196. Vitamin D significantly low at 11.6, wont replenish vitamin D at this time due to inability to swallow. Nephrology workup pending. DVT prophylaxis: Heparin 5,000 units BID DISPOSITION: F/u imaging and pending clinical improvement. Expect more than 2 midnights. VS, I&O, 24H, Fishbone Vital Signs/I&O Vital Signs Date Time Temp Pulse Resp B/P (MAP) Pulse Ox O2 Delivery O2 Flow Rate FiO2 09/13/19 15:41 69 104/57 (73) 95 Room Air 09/13/19 15:23 97.5 16 I&O- Last 24 Hours up to 6 AM 09/13/19 06:00 Intake Total 0 ml Output Total 800 ml Balance -800 ml Laboratory Data 24H LABS Laboratory Tests 2 09/12/19 21:11: Immature Granulocyte % (Auto) 1.6, Neutrophils (%) (Auto) 78.3H, Lymphocytes (%) (Auto) 7.2L, Monocytes (%) (Auto) 11.7H, Eosinophils (%) (Auto) 0.7, Basophils (%) (Auto) 0.5, Neutrophils # (Auto) 11.5H, Lymphocytes # (Auto) 1.1L, Monocytes # (Auto) 1.7H, Eosinophils # (Auto) 0.1, Basophils # (Auto) 0.1, Nucleated Red Blood Cells % (auto) 0.0, Anion Gap 16, Glomerular Filtration Rate 12.8L, Lactic Acid Level 0.9, Calcium Level 6.3L, Phosphorus Level 6.4H, Magnesium Level 2.1, Total Bilirubin 0.5, Direct Bilirubin 0.2, Aspartate Amino Transf (AST/SGOT) 59H, Alanine Aminotransferase (ALT/SGPT) 98H, Alkaline Phosphatase 151H, Ammonia 19, Total Creatine Kinase 88, Creatine Kinase MB 3.6, Creatine Kinase MB Relative Index 4.09H, Troponin I < 0.02, Total Protein 6.2L, Albumin 3.0L, Albumin/Globulin Ratio 0.94L, Thyroid Stimulating Hormone (TSH) 0.406, Salicylates Level < 1.7L, Acetaminophen Level < 2.0L, Ethyl Alcohol Level < 0.003 09/12/19 21:41: Bedside Glucose (Misc Panel) 121H 09/12/19 23:20: Urine Color DEMAR, Urine Appearance CLOUDYH, Urine pH 5.0, Urine Specific [place] 1.014, Urine Protein 2+H, Urine Glucose (UA) 2+H, Urine Ketones NEGATIVE, Urine Blood 3+H, Urine Nitrite NEGATIVE, Urine Bilirubin NEGATIVE, Urine Urobilinogen 0.2, Urine Leukocyte Esterase NEGATIVE, Urine WBC (Auto) 9H, Urine RBC (Auto) TNTCH, Urine Hyaline Casts (Auto) 0, Urine Bacteria (Auto) 1+H, Urine Squamous Epithelial Cells 0, Urine Amorphous Sediment SMALLH, Urine Sperm (Auto) , Urine Opiates Screen NEGATIVE, Urine Methadone Screen NEGATIVE, Urine Barbiturates Screen NEGATIVE, Urine Phencyclidine Screen NEGATIVE, Urine Amphetamines Screen NEGATIVE, Urine Benzodiazepines Screen NEGATIVE, Urine Cocaine Metabolite Screen NEGATIVE, Urine Cannabinoids Screen NEGATIVE 09/13/19 00:01: Urine Random Creatinine 257.0, Urine Random Total Protein 224.5H, Urine Random Sodium 21, Urine Random Potassium 46.3, Urine Random Chloride < 10, Urine Random Urea Nitrogen 250 09/13/19 00:02: Influenza Type A (RT-PCR) NEGATIVE, Influenza Type B (RT-PCR) NEGATIVE 09/13/19 04:45: Nucleated Red Blood Cells % (auto) 0.0, Anion Gap 17H, Glomerular Filtration Rate 10.9L, Calcium Level 7.3#L, Total Bilirubin 0.5, Aspartate Amino Transf (AST/SGOT) 65H, Alanine Aminotransferase (ALT/SGPT) 103H, Alkaline Phosphatase 155H, Total Protein 6.5, Albumin 3.2, Albumin/Globulin Ratio 0.97L, Vitamin B12 Level 367, 25-Hydroxy Vitamin D Total 11.6L, Prolactin 19.4H, Parathyroid Hormone (Intact) 196.1H, Hepatitis A IgM Antibody NEGATIVE, Hepatitis B Surface Antigen NEGATIVE, Hepatitis B Core IgM Antibody NEGATIVE, Hepatitis C Antibody Index < 0.0 09/13/19 06:52: Blood Gas Bicarbonate Standard 15.1L, Arterial Blood pH 7.248*L, Arterial Blood Partial Pressure CO2 33.5L, Arterial Blood Partial Pressure O2 95.1, Arterial Blood Total CO2 15.3L, Arterial Blood HCO3 14.3L, Arterial Blood Base Excess - 11.9L, Arterial Blood Oxygen Saturation 96.5 09/13/19 08:04: Prothrombin Time 14.4H, Prothromb Time International Ratio 1.15 09/13/19 10:14: Anion Gap 15, Glomerular Filtration Rate 11.7L, Osmolality 296H, Calcium Level 7.4L, Phosphorus Level 7.1H 09/13/19 10:15: Complement C3 114, Complement C4 29 09/13/19 10:55: Urine Color YELLOW, Urine Appearance CLOUDYH, Urine pH 5.0, Urine Specific [place] 1.011, Urine Protein 1+H, Urine Glucose (Auto)(UA) 2+H, Urine Ketones (Auto) NEGATIVE, Urine Blood 3+H, Urine Nitrite NEGATIVE, Urine Bilirubin NEGATIVE, Urine Urobilinogen 0.2, Urine Leukocyte Esterase (Auto) TRACEH, Urine WBC (Auto) 8H, Urine RBC (Auto) 51H, Urine Hyaline Casts (Auto) 0, Urine Bacteria (Auto) 1+H, Urine Squamous Epithelial Cells 0, Urine Uric Acid Crystals (Auto) SMALL, Urine Mucus (Auto) SMALL, Urine Sperm (Auto) , Urine Total Protein mg/dL 81.3H 09/13/19 11:21: Lactic Acid Level 0.8, Whole Blood Ionized Calcium 4.4L 09/13/19 11:25: CBC/BMP Laboratory Tests 09/12/19 21:11 09/13/19 04:45 09/13/19 10:14 Attending Note I personally saw and evaluated the patient. I agree with the findings and the plan of care documented above in the resident's note. VALENTINO GRIGSBY OMS-3 Sep 13, 2019 18:00 ERIC SPARROW MD Sep 13, 2019 20:18
[2019-09-13] MEDS ORDERED: SODIUM CHLORIDE 0.9% 1000ML IV ONE (20:15)
[2019-09-14] VITALS (17 sets, daily range): BP systolic 116–162; BP diastolic 56–98
[2019-09-14] MEDS ORDERED: SODIUM CHLORIDE 0.9% 1000ML IV ONE (02:00)
[2019-09-14] MEDS: SODIUM BICARBONATE 150 MEQ in D5W 1,000 ML IV SCH (02:07)
[2019-09-14] MEDS: LORazepam 2 MG/ML VIAL (J2060) IV PRN (02:10)
[2019-09-14] MEDS ORDERED: THIAMINE HCL 200 MG/2 ML VIAL (J3411) IM SCH ×2 (04:00→12:00)
[2019-09-14 05:06] LABS: HEMATOCRIT 33.3 % (42.0-52.0); HEMOGLOBIN 11.3 g/dl (13.5-17.5); MEAN CORPUSCULAR HEMOGLOBIN 28.3 pg (27.0-33.0); MEAN CORPUSCULAR HGB CONC 33.9 g/dl (32.0-36.5); MEAN CORPUSCULAR VOLUME 83.3 fl (80.0-96.0); PLATELET COUNT, AUTOMATED 240 10^3/uL (150-450); WHITE BLOOD COUNT 8.1 10^3/uL (4.0-10.0)
[2019-09-14 05:32] LABS: CALCIUM LEVEL 7.6 MG/DL (8.5-10.1); CREATININE FOR GFR 3.91 MG/DL (0.70-1.30); GLOMERULAR FILTRATION RATE 17.5 (>60); POTASSIUM SERUM 4.1 MEQ/L (3.5-5.1)
[2019-09-14 05:41] LABS: ABG BASE EXCESS -4.2 (-2.0-2.0); ABG HCO3 20.1 MEQ/L (22.0-26.0); ABG O2 SATURATION 97.4 % (95.0-99.0); ABG PARTIAL PRESSURE CO2 34.6 mmHg (35.0-45.0); ABG PARTIAL PRESSURE O2 99.3 mmHg (75.0-100.0); ABG TOTAL CO2 21.2 MEQ/L (22.0-29.0); ABG pH (ARTERIAL) 7.383 UNITS (7.350-7.450)
[2019-09-14] MEDS: HEPARIN SOD (PORCINE) 5000 UNITS/ML VIAL (J1644 PER 1000UNITS) SQ SCH ×2 (10:45→20:45)
[2019-09-14] MEDS: D5W/0.45% SODIUM CHLORIDE 1,000 ML IV SCH (11:22)
[2019-09-14] MEDS: THIAMINE INJection 500 MG in NS 100 ML IV SCH ×2 (12:43→20:43)
[2019-09-14] MEDS ORDERED: LORazepam 2 MG TAB PO PRN (12:45)
--- NOTE | 2019-09-14 12:47 | IPN ---
DATE OF VISIT: 09/14/2019 Mr. Dimas is seen this morning on his bedside in intensive care unit. He was laying down with his eyes closed but he responded appropriately and quickly to my verbal stimulus. He was able to tell me his name and also repeat my name. He denies any complaints. Yesterday he was completely unresponsive and spinal tap was attempted but no CSF could be drained. He had MRI of his brain done which did not show any acute infarct or bleed. Now working diagnosis is possible seizure with postictal altered mentation. This morning he is moving all his extremities and answering questions. He is still nothing by mouth. PHYSICAL EXAMINATION: Temperature 98.1 degrees Fahrenheit, heart rate 78 per minute and respiratory rate 16 per minute. Blood pressure 131/86 mmHg and oxygen saturation 95% on room air. His head is atraumatic. Neck supple and without jugular venous distention (JVD) or thyroid enlargement. Heart sounds are regular and lungs sound clear to auscultation. Abdomen soft and nontender. Bowel sounds are normal. Extremities have no cyanosis or clubbing. Neurologically he is awake and responsive and answers questions appropriately. He is able to move all his limbs. Today's labs show WBC count 8.1, hemoglobin 11.3 and hematocrit 33.3. Platelets 240. Sodium 140, potassium 4.1, CO2 23, BUN 54 and creatinine 3.91. Glucose is 114 and calcium 7.6. PROBLEMS: 1. Acute renal failure. Kidney function is improving nicely and the patient does not seem to have any uremic symptoms at present. He remains on IV fluid as he is nothing by mouth. 2. Metabolic acidosis. His acidosis has corrected and I am going to stop his sodium bicarbonate drip and put him on half normal saline with D5W. I feel that the patient can probably be evaluated for oral intake now. 3. Proteinuria and hematuria. His urinalysis was repeated yesterday and repeat urine only showed 1+ protein and still 3+ blood but only 51 RBCs compared with too numerous to count RBCs on the initial urinalysis. Spot urine protein was also repeated which showed only 81 mg protein. Serology and immunology is still pending. His complements were normal with C3 114 and C4 clinically he does not seem to have any acute glomerulonephritis or vasculitis and his kidney function is improving at present. We will continue to monitor closely. 4. Altered mentation, probably toxic or related to seizures. I do not feel that uremia was contributing to his altered mentation at all. At this point we will continue to follow him closely. From renal standpoint no urgent intervention is indicated.
[2019-09-14 13:12] LABS: URINE TOTAL PROTEIN 81.3 MG/DL (0-12)
[2019-09-14] MEDS ORDERED: FOLIC ACID 50 MG in NS 50 ML IV SCH (16:00)
--- NOTE | 2019-09-14 18:57 | IPNPDOC ---
Date Seen The patient was seen on 09/14/19. Progress Note SUBJECTIVE: Patient seen and examined this morning. He appears to be a more conversant and less lethargic. Continues to have repetitive answers that are more appropriate. Is able to follow commands better this morning. Continue to deny any chest pain, shortness of breath, nausea, vomiting, or abdominal pain. OBJECTIVE PHYSICAL EXAMINATION: VITAL SIGNS: Please see below. GENERAL: 49 yr old male, appears post ictal possible? Childlike demeanor when conversing. Continues to have palilalia answers. HEENT: Atraumatic, normacephalic, flush skin, pupils were 4mm bilaterally and react appropriately to light, moist mucus membranes, no JVD CARDIOVASCULAR: S1 S2 regular no additional heart sounds appreciated RESPIRATORY: Clear to auscultation bilaterally no wheezes, rhonchi or rales ABDOMINAL: Bowel sounds present abdomen soft and nontender, minimally distended with no rebounding or guarding EXTREMITIES: No clubbing cyanosis or edema, saline lock on R leg wrapped with gauze. NEUROLOGICAL: Somnolent, palilalia, alert oriented to person and place but not time. Positive asterixis bilaterally in the upper extremities. Spontaneously moves lower extremities and upper extremities to command. No pronator drift noted. LABORATORY DATA, MICROBIOLOGY: Please see below. IMAGING STUDIES: Head CT: Impression: 1. 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 Correlation with MRI is recommended if not previously evaluated. 2. Otherwise unremarkable head CT. No acute findings. Chest X-Ray: Impression: No acute cardiopulmonary process appreciated. ASSESSMENT AND PLAN: This is a 49-year-old male who presented with altered mental status. PROBLEMS: 1.Acute metabolic encephalopathy possibly secondary alcohol withdrawal vs post ictal after unwitnessed seizure. Ethyl alcohol levels undetectable. Continue high dose thiamine injections for 2 days for management for wernickes encephalopathy and currrent folic acid injections. Imaging showed meningioma but negative for any acute processes. Unsure if meningioma is contributing to the problem as well. EEG this morning pending results we will see if neurology consult is indicated. With an elevated prolactin level this can be seen in alcohol related seizures. Lumbar puncture was performed yesterday but no CSF fluid could be obtained but I do not believe this is an infectious cause. 2. History of alcohol abuse. Abdominal u/s shows significant hepatic steatosis. Place him on CIWA protocol and Ativan 2 mg PO per protocol, as well as 2mg IV q2hp PRN for [facility]32, indicates good prognosis, prednisolone therapy not indicated. 3. PENNY with metabolic acidosis. Improving. Kidney function in December 2018 was within normal limits. Patient did have a recent surgery in May which his mom believes he was taking Aleve for pain control for she took away his narcotics. NSAIDs can play a role in the PENNY. Nephrology has been consulted. Nephrology workup currently pending. We will hold nephrotoxic drugs, continue IV fluids per nephrologys recommendations. Once tolerating a diet, can possible discontinue IV fluids. 4. Bilateral non-obstructing nephrolithiasis in the lower poles. 13.9 mm in right lower pole, 5.4 mm in left lower pole. Right pole is pretty significant in size, once problem #1 is addressed will f/u if urology is needed or not. 5. Back pain status post laminectomy May 2019 MRI lumbar back negative for acute process, will f/u, hold pain medicine and muscle relaxants due to problem #1. 6. Secondary hyperparathyroidism Possibly secondary to renal disease. Ionized calcium slightly low at 4.4. PTH elevated at 196. Vitamin D significantly low at 11.6, wont replenish vitamin D at this time due to inability to swallow. Nephrology workup pending. Will await their recommendations. DVT prophylaxis: Heparin 5,000 units BID DISPOSITION: F/u imaging and pending clinical improvement. Expect more than 2 midnights. VS, I&O, 24H, Fishbone Vital Signs/I&O Vital Signs Date Time Temp Pulse Resp B/P (MAP) Pulse Ox O2 Delivery O2 Flow Rate FiO2 09/14/19 17:06 98 142/78 09/14/19 17:00 98.8 18 97 09/14/19 16:32 Room Air I&O- Last 24 Hours up to 6 AM 09/14/19 06:00 Intake Total 1121 ml Output Total 2610 ml Balance -1489 ml Laboratory Data 24H LABS Laboratory Tests 2 09/14/19 04:53: Nucleated Red Blood Cells % (auto) 0.0, Anion Gap 9, Glomerular Filtration Rate 17.5L, Calcium Level 7.6L, Magnesium Level 2.0 09/14/19 05:26: Blood Gas Bicarbonate Standard 21.0L, Arterial Blood pH 7.383, Arterial Blood Partial Pressure CO2 34.6L, Arterial Blood Partial Pressure O2 99.3, Arterial Blood Total CO2 21.2L, Arterial Blood HCO3 20.1L, Arterial Blood Base Excess - 4.2L, Arterial Blood Oxygen Saturation 97.4 CBC/BMP Laboratory Tests 09/14/19 04:53 GME ATTESTATION GME ATTESTATION My faculty preceptor for this patient encounter was physically present during the encounter and was fully available. All aspects of the patient interview, examination, medical decision making process, and medical care plan development were reviewed and approved by the faculty preceptor. The faculty preceptor is aware and concurs with the plan as stated in the body of this note and will attest to such by his/her cosignature. ATTENDING NOTE 49-year-old man with alcohol use disorder who was found down and presented with altered mental status and admitted with AMS and PENNY with profound metabolic acidosis requiring nephrology consult and placement on a bicarb drip and fluids with improvement of PENNY and acidosis, CIWA for alcohol withdrawal and slow improvement in his mentation. ALISSA KELLY DO Sep 14, 2019 18:57 ARTHUR OG MD Sep 15, 2019 10:58
--- NOTE | 2019-09-14 21:42 | EEG ---
DATE OF PROCEDURE: 09/14/2019 REFERRING PHYSICIAN: Dr. Zach Ching DIAGNOSIS: Seizure. EEG NUMBER: [id number]. HISTORY: The patient is a 49-year-old man who was admitted at [facility] due to anxiety, depression, back pain and alcoholism. This EEG was done to rule out epileptic potential. He is currently taking folic acid, thiamine, Ativan, etc. TECHNICAL DESCRIPTION: This digital EEG was recorded by 21 scalp, ear and two EKG electrodes and was reviewed in bipolar and referential montages following reformatting in 10-20 international electrode placement system. INTERPRETATION: The patient was noted to be in awake and drowsy states during this EEG. Resting awake background rhythm consisted of 4-5 Hz delta-theta activity measuring 15-50 microvolts in amplitude, which was symmetric bilaterally. Stage II sleep was identified and was symmetric bilaterally. Hyperventilation could not be performed. Photic stimulation remained unremarkable. No lateralizing or epileptiform abnormalities were seen. Subtle bilateral frontally predominant triphasic waves were noted. No relevant clinical activity was noted. CONCLUSION: This EEG in awake, drowsy states, stage II sleep is abnormal due to presence of generalized slowing, disorganization of background and several bilateral frontally predominant triphasic waves consistent with nonspecific diffuse cerebral dysfunction such as seen in encephalopathy due to multiple potential causes, toxic, metabolic, infectious, autoimmune, medication related or multifocal structural brain abnormalities. No clear epileptiform abnormalities were seen.
[2019-09-15] VITALS (11 sets, daily range): BP systolic 148–176; BP diastolic 92–110
[2019-09-15 00:08] LABS: CARDIOLIPIN IGA ANTIBODY <9 APL U/mL (0-11); CARDIOLIPIN IGG ANTIBODY <9 GPL U/mL (0-14); CARDIOLIPIN IGM ANTIBODY <9 MPL U/mL (0-12)
[2019-09-15] MEDS: D5W/0.45% SODIUM CHLORIDE 1,000 ML IV SCH (03:01)
[2019-09-15] MEDS: THIAMINE INJection 500 MG in NS 100 ML IV SCH ×3 (04:33→20:29)
[2019-09-15 05:52] LABS: HEMOGLOBIN 11.9 g/dl (13.5-17.5); MEAN CORPUSCULAR HEMOGLOBIN 28.2 pg (27.0-33.0); MEAN CORPUSCULAR HGB CONC 33.1 g/dl (32.0-36.5); MEAN CORPUSCULAR VOLUME 85.3 fl (80.0-96.0); PLATELET COUNT, AUTOMATED 254 10^3/uL (150-450); RED BLOOD COUNT 4.22 10^6/uL (4.30-6.10); WHITE BLOOD COUNT 7.6 10^3/uL (4.0-10.0)
[2019-09-15 06:22] LABS: CALCIUM LEVEL 7.9 MG/DL (8.5-10.1); CREATININE FOR GFR 2.61 MG/DL (0.70-1.30); GLOMERULAR FILTRATION RATE 27.9 (>60); MAGNESIUM LEVEL 1.7 MG/DL (1.8-2.4); POTASSIUM SERUM 4.1 MEQ/L (3.5-5.1)
[2019-09-15] MEDS: HEPARIN SOD (PORCINE) 5000 UNITS/ML VIAL (J1644 PER 1000UNITS) SQ SCH ×2 (08:31→20:29)
[2019-09-15] MEDS: amLODIPine 5 MG TAB PO SCH (08:32)
[2019-09-15] MEDS ORDERED: lisinopriL 40 MG TAB PO SCH (09:00)
[2019-09-15] MEDS ORDERED: METOPROLOL SUCC *XL* 25MG TAB (TopROL *XL*) PO ONE (10:45)
--- NOTE | 2019-09-15 12:01 | IPNPDOC ---
Date Seen The patient was seen on 09/15/19. Progress Note SUBJECTIVE: Patient seen and examined this morning. He is a lot more appropriate today. Learning oriented 3. He knows he is at [facility] in [place] because he was sick. He does endorse that he has a significant alcohol history and understands that it contributed to the reason why he was admitted. He denies any chest pain, nausea, vomiting, abdominal pain or shortness of breath. There is no repetitive answers today. Patient would like to have a regular diet, ambulate around the room and have his Nair removed if possible. He has no other complaints today. OBJECTIVE PHYSICAL EXAMINATION: VITAL SIGNS: Please see below. GENERAL: 49-year-old male sitting up in the bed alert and oriented 3 appropriately answering questions appears stated age does not appear in acute distress. HEENT: Atraumatic, normacephalic, flush skin, pupils equal round and reactive, moist mucous membranes, no JVD CARDIOVASCULAR: S1 S2 regular no additional heart sounds appreciated RESPIRATORY: Clear to auscultation bilaterally no wheezes, rhonchi or rales ABDOMINAL: Bowel sounds present abdomen soft and nontender, minimally distended with no rebounding or guarding EXTREMITIES: No clubbing cyanosis or edema, bilateral dry feet with minimal cracks with no oozing, erythema or tenderness. NEUROLOGICAL: AO3. Spontaneously moving all muscles appropriately. No asterixis bilaterally in upper extremity. No neurological deficits appreciated. Appropriately answering questions. LABORATORY DATA, MICROBIOLOGY: Please see below. IMAGING STUDIES: Head CT: Impression: 1. 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 Correlation with MRI is recommended if not previously evaluated. 2. Otherwise unremarkable head CT. No acute findings. Chest X-Ray: Impression: No acute cardiopulmonary process appreciated. ASSESSMENT AND PLAN: This is a 49-year-old male who presented with altered mental status. PROBLEMS: 1.Acute metabolic encephalopathy possibly secondary alcohol withdrawal ( Resolved) Ethyl alcohol levels undetectable. Continue high dose thiamine injections for 1 more day for management for wernickes encephalopathy and currrent folic acid. Imaging showed meningioma but negative for any acute processes, unsure if meningioma is contributing to the problem as well. EEG was no specific. With an elevated prolactin level this can be seen in alcohol related seizures. Neuroch shayy every 4 hours with vitals check 2. History of alcohol abuse. Abdominal u/s shows significant hepatic steatosis. c/w CIWA protocol and Ativan 2 mg PO per protocol, as well as 2mg IV q2hp PRN for seizures for another 24 hours. Patient has a desire to learn about AAA and will think about rehab. Maddrey Discriminant Function <32, indicates good prognosis, prednisolone the rapy not indicated. 3. PENNY with metabolic acidosis. continue to improving. Kidney function in December 2018 was within normal limits. Patient did have a recent surgery in May which his mom believes he was taking Aleve for pain control for she took away his narcotics. NSAIDs can play a role in the PENNY. Nephrology has been consulted.continue to hold nephrotoxic drugs. Transition to regular diet today and discontinue IV fluids. 4. Bilateral non-obstructing nephrolithiasis in the lower poles. 13.9 mm in right lower pole, 5.4 mm in left lower pole. Right pole is pretty significant in size, once problem #1 is addressed will f/u if urology is needed or not. 5. Back pain status post laminectomy May 2019 MRI lumbar back negative for acute process, will f/u, hold pain medicine and muscle relaxants due to problem #1. 6. Secondary hyperparathyroidism Possibly secondary to renal disease. Ionized calcium slightly low at 4.4. PTH elevated at 196. Vitamin D significantly low at 11.6, wont replenish vitamin D at this time due to inability to swallow. Nephrology workup pending. Will await their recommendations. 7.PT - consulted. 8. Diet: Regular diet 9. Anxiety/Depression: hold home medications at this current timE for mentation is just improving. 10. Hypertension: Hold home Lisinopril due to a PENNY. Amlodipine 5 mg daily on board. Metoprolol 25 mg 1 was given this morning by Dr. Norman. We'll monitor high blood pressure. DVT prophylaxis: Heparin 5,000 units BID DISPOSITION: PT clearance,CIWA another 24 hours. possible D.C in 1-2 days. VS, I&O, 24H, Fishbone Vital Signs/I&O Vital Signs Date Time Temp Pulse Resp B/P (MAP) Pulse Ox O2 Delivery O2 Flow Rate FiO2 09/15/19 11:10 108 174/104 09/15/19 08:00 98.0 18 96 Room Air I&O- Last 24 Hours up to 6 AM 09/15/19 06:00 Intake Total 2775 ml Output Total 4815 ml Balance -2040 ml Laboratory Data 24H LABS Laboratory Tests 2 09/15/19 05:22: Nucleated Red Blood Cells % (auto) 0.0, Anion Gap 10, Glomerular Filtration Rate 27.9L, Calcium Level 7.9L, Magnesium Level 1.7L CBC/BMP Laboratory Tests 09/15/19 05:22 GME ATTESTATION GME ATTESTATION My faculty preceptor for this patient encounter was physically present during the encounter and was fully available. All aspects of the patient interview, examination, medical decision making process, and medical care plan development were reviewed and approved by the faculty preceptor. The faculty preceptor is aware and concurs with the plan as stated in the body of this note and will attest to such by his/her cosignature. ATTENDING NOTE Mr. Dimas is doing tremendously better today. His diet has now been advanced, is having low CIWA scores and now AOx3. Will likely discharge him home after PT evaluation. For now, we continued BP control with amlodipine while holding his ACEi in the setting of his now improving PENNY. Nephrology stopped fluids and bicarb and started Vit D. He is to follow up with them outpatient until resolution of renal injury. Otherwise producing adequate urine, is euvolemic and overall improving. ALISSA KELLY DO Sep 15, 2019 12:01 ARTHUR OG MD Sep 16, 2019 12:22
--- NOTE | 2019-09-15 12:43 | IPN ---
DATE OF VISIT: 09/15/2019 Mr. Dimas is seen this morning on his bedside. He is awake and alert today sitting in the bed with head elevated. He wants to get his Nair catheter removed and also wants to know if he can get out of bed. He denies any dyspnea, chest pain, nausea, vomiting, fever or chills. I have talked to him about his condition and he feels that he fell at home multiple times and also had loose stools the day prior to admission. However, since his admission he did not have any loose stools here in the hospital. He denies any prior history of seizure disorder. On physical exam, temperature 98 degrees Fahrenheit, Dictation ended
[2019-09-15] MEDS: DIMETHICONE 2% OINTMENT(VANIPLY) 70GM TUBE TOP SCH ×2 (14:31→20:46)
[2019-09-15] MEDS ORDERED: **hydrALAZINE** 10 MG TAB PO ONE (19:00)
--- NOTE | 2019-09-15 21:50 | IPN ---
DATE: 09/15/2019 Mr. Dimas is seen this morning on his bedside. He has been transferred out of the ICU. He is feeling much better and is fully awake and alert. He wants to eat and also wants to get his Nair catheter out. He denies any nausea, vomiting, dyspnea or chest pain. He has been tolerating clear liquids well. He also questioned about his lisinopril and other medications. PHYSICAL EXAMINATION: Temperature 98.2 degrees Fahrenheit, heart rate 97 per minute and respiratory rate 18 per minute. Blood pressure 148/98 mmHg and oxygen saturation 97% on room air. His heart sounds are tachycardiac. Neck is supple and without JVD or thyroid enlargement. Lungs sound clear to auscultation. Abdomen soft and nontender. Bowel sounds are normal. Extremities have no cyanosis or clubbing. Neurologically he is awake, alert and oriented times three. Today's labs show WBC count 7.6, hemoglobin 11.9 and hematocrit 36.0. Platelets 254. Sodium 139, potassium 4.1, CO2 21, BUN 33 and creatinine 2.61. Glucose 129 and calcium 7.9. PROBLEMS: 1. Acute renal failure. Kidney function is improving nicely and he has been receiving IV fluid up until now. He is very well-hydrated now and he is tolerating oral intake well. I am going to stop his IV fluid and let him eat and drink. We will also take out his Nair catheter. 2. Metabolic acidosis. His acidosis has corrected and remained stable. There is no more need for sodium bicarbonate. 3. Hypocalcemia. His calcium level is also improved and the patient should be switched to regular diet. I do not feel that at this point we need any further calcium supplementation. 4. Hypertension. Blood pressure is high however, he is not suitable for lisinopril that he was taking at home prior to admission. He has received amlodipine 5 mg and I am going to give him one dose of metoprolol 25 mg in view of tachycardia. I would suggest to avoid hydralazine and give him clonidine or beta kevin as needed. We can also consider increasing dose of amlodipine to 10 mg daily if needed. Once his kidney function improves back to baseline then he can resume his lisinopril. Most likely his acute renal failure was related to nonsteroidal and dehydration. DISPOSITION: From a renal standpoint, the patient can have increased activity and get out of bed. Physical therapy evaluation should be ordered.
[2019-09-16] VITALS: BP 152/92
[2019-09-16 04:00] VITALS: BP 160/96
[2019-09-16] MEDS: THIAMINE INJection 500 MG in NS 100 ML IV SCH (04:20)
[2019-09-16 05:44] LABS: HEMATOCRIT 36.4 % (42.0-52.0); HEMOGLOBIN 12.1 g/dl (13.5-17.5); MEAN CORPUSCULAR HEMOGLOBIN 28.5 pg (27.0-33.0); MEAN CORPUSCULAR HGB CONC 33.2 g/dl (32.0-36.5); MEAN CORPUSCULAR VOLUME 85.6 fl (80.0-96.0); PLATELET COUNT, AUTOMATED 263 10^3/uL (150-450); RED BLOOD COUNT 4.25 10^6/uL (4.30-6.10); WHITE BLOOD COUNT 8.9 10^3/uL (4.0-10.0)
[2019-09-16 06:13] LABS: CALCIUM LEVEL 8.8 MG/DL (8.5-10.1); CREATININE FOR GFR 2.3 MG/DL (0.70-1.30); GLOMERULAR FILTRATION RATE 32.3 (>60); MAGNESIUM LEVEL 1.6 MG/DL (1.8-2.4); POTASSIUM SERUM 3.8 MEQ/L (3.5-5.1)
--- NOTE | 2019-09-16 07:14 | IPNPDOC ---
Date Seen The patient was seen on 09/16/19. Progress Note SUBJECTIVE: Patient seen and examined this morning. He denies any chest pain, nausea, vomiting, abdominal pain or shortness of breath. He has no other complaints today. OBJECTIVE PHYSICAL EXAMINATION: VITAL SIGNS: Please see below. GENERAL: 49-year-old male sitting up in the bed alert and oriented 3 appropriately answering questions appears stated age does not appear in acute distress. HEENT: Atraumatic, normacephalic, flush skin, pupils equal round and reactive, moist mucous membranes, no JVD CARDIOVASCULAR: S1 S2 regular no additional heart sounds appreciated RESPIRATORY: Clear to auscultation bilaterally no wheezes, rhonchi or rales ABDOMINAL: Bowel sounds present abdomen soft and nontender, minimally distended with no rebounding or guarding EXTREMITIES: No clubbing cyanosis or edema, bilateral dry feet with minimal cracks with no oozing, erythema or tenderness. NEUROLOGICAL: AO3. Spontaneously moving all muscles appropriately. No asterixis bilaterally in upper extremity. No neurological deficits appreciated. Appropriately answering questions. LABORATORY DATA, MICROBIOLOGY: Please see below. IMAGING STUDIES: Head CT: Impression: 1. 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 Correlation with MRI is recommended if not previously evaluated. 2. Otherwise unremarkable head CT. No acute findings. Chest X-Ray: Impression: No acute cardiopulmonary process appreciated. ASSESSMENT AND PLAN: This is a 49-year-old male who presented with altered mental status. PROBLEMS: 1.Acute metabolic encephalopathy possibly secondary alcohol withdrawal (Resolved) Ethyl alcohol levels undetectable. Continue high dose thiamine injections for 1 more day for management for wernickes encephalopathy and currrent folic acid. Imaging showed meningioma but negative for any acute processes, unsure if meningioma is contributing to the problem as well. EEG was no specific. With an elevated prolactin level this can be seen in alcohol related seizures. Neurocheck every 4 hours with vitals check 2. History of alcohol abuse. Abdominal u/s shows significant hepatic steatosis. c/w CIWA protocol and Ativan 2 mg PO per protocol, as well as 2mg IV q2hp PRN for seizures for another 24 hours. Patient has a desire to learn about AAA and will think about rehab. Maddrey Discriminant Function <32, indicates good prognosis, prednisolone therapy not indicated. 3. PENNY with metabolic acidosis. continue to improving. Kidney function in December 2018 was within normal limits. Patient did have a recent surgery in May which his mom believes he was taking Aleve for pain control for she took away his narcotics. NSAIDs can play a role in the PENNY. Nephrology has been consulted.continue to hold nephrotoxic drugs. Transition to regular diet today and discontinue IV fluids. 4. Bilateral non-obstructing nephrolithiasis in the lower poles. 13.9 mm in right lower pole, 5.4 mm in left lower pole. Right pole is pretty significant in size, once problem #1 is addressed will f/u if urology is needed or not. 5. Back pain status post laminectomy May 2019 MRI lumbar back negative for acute process, will f/u, hold pain medicine and muscle relaxants due to problem #1. 6. Secondary hyperparathyroidism Possibly secondary to renal disease. Ionized calcium slightly low at 4.4. PTH elevated at 196. Vitamin D significantly low at 11.6, wont replenish vitamin D at this time due to inability to swallow. Nephrology workup pending. Will await their recommendations. 7.PT - consulted. 8. Diet: Regular diet 9. Anxiety/Depression: hold home medications at this current timE for mentation is just improving. 10. Hypertension: Hold home Lisinopril due to a PENNY. Amlodipine 5 mg daily on board. Metoprolol 25 mg 1 was given this morning by Dr. Norman. We'll monitor high blood pressure. DVT prophylaxis: Heparin 5,000 units BID DISPOSITION: PT clearance,CIWA another 24 hours. possible D.C in 1-2 days. VS, I&O, 24H, Fishbone Vital Signs/I&O Vital Signs Date Time Temp Pulse Resp B/P (MAP) Pulse Ox O2 Delivery O2 Flow Rate FiO2 09/16/19 04:00 98.0 89 16 160/96 (117) 99 Room Air I&O- Last 24 Hours up to 6 AM 09/16/19 06:00 Intake Total 2305 ml Output Total 1125 ml Balance 1180 ml Laboratory Data 24H LABS Laboratory Tests 2 09/16/19 05:28: Nucleated Red Blood Cells % (auto) 0.0, Anion Gap 6L, Glomerular Filtration Rate 32.3L, Calcium Level 8.8, Magnesium Level 1.6L CBC/BMP Laboratory Tests 09/16/19 05:28 ALISSA KLELY DO Sep 16, 2019 07:14
[2019-09-16 07:37] VITALS: BP 162/78
[2019-09-16] MEDS: amLODIPine 5 MG TAB PO SCH (08:10)
[2019-09-16] MEDS: HEPARIN SOD (PORCINE) 5000 UNITS/ML VIAL (J1644 PER 1000UNITS) SQ SCH (08:10)
[2019-09-16 09:00] VITALS: BP 162/78
[2019-09-16] MEDS ORDERED: MULTIVITAMINS/MINERALS THERAP 1 TAB PO SCH (09:00)
[2019-09-16] MEDS ORDERED: FOLIC ACID 1 MG TAB PO SCH (09:00)
[2019-09-16] MEDS: DIMETHICONE 2% OINTMENT(VANIPLY) 70GM TUBE TOP SCH (09:00)
[2019-09-16] MEDS ORDERED: AMLO10TA5 PO (10:08)
[2019-09-16] MEDS ORDERED: VITMTA PO (10:08)
[2019-09-16] MEDS ORDERED: FOLI1TAB11 PO (10:08)
[2019-09-16] MEDS ORDERED: VITA50005 PO (10:10)
[2019-09-16] MEDS ORDERED: amLODIPine 5 MG TAB PO ONE (11:00)
--- NOTE | 2019-09-16 11:26 | IPN ---
DATE OF VISIT: 09/16/2019 Mr. Dimas is seen this morning on his bedside. He is feeling well and denies any headache, dyspnea, chest pain, nausea, vomiting, fever, or chills. He wants to go home today. His Nair catheter was removed yesterday, and he is urinating very well. He is also tolerating oral diet. He has had no observed seizures activity and denies any prior history of such. He also reports that he did not use any nonsteroidals in the recent past. On physical examination, temperature 98.1 degrees Fahrenheit, heart rate 76 per minute, and respiratory rate 18 per minute. Blood pressure 162/78 mmHg and oxygen saturation 98% on room air. Head is atraumatic. Neck: Supple and without jugular venous distention (JVD) or thyroid enlargement. Heart sounds regular. Lungs clear to auscultation. Abdomen: Soft and nontender and bowel sounds are normal. Extremities have no cyanosis or clubbing. Neurologically, he is awake, alert and oriented times three. Today's laboratories show: WBC count 9.8, hemoglobin 12.1, and hematocrit 36.4. Platelets 263. Sodium 140, potassium 3.8, CO2 28, BUN 28, and creatinine 2.30. Glucose 114 and calcium 8.8. Magnesium level is 1.6. PROBLEMS: 1. Acute kidney injury. Etiology is uncertain, but he was certainly dehydrated at the time of admission. With hydration, his kidney function has improved; and at this point, clinically he does not look dehydrated. He was also using angiotensin-converting enzyme (LINDSEY) inhibitor for hypertension but denies any nonsteroidal antiinflammatory drug (NSAID) use. It remains to be seen how his kidney function improves. He will need followup as an outpatient. 2. Hyperparathyroidism and vitamin D deficiency. He did have hypocalcemia on admission, and vitamin D level was low at 11.5. His parathyroid hormone (PTH) level is 196. I have discussed with the resident staff and advised to start with vitamin D supplement 50,000 units once a week. His PTH level will need to be monitored as an outpatient. 3. Hypertension. The patient is still not suitable for LINDSEY inhibitor. Suggest to increase his amlodipine dose to 10 mg daily. I would also recommend not to use any diuretic at present, as he is just recovering from acute kidney injury. Beta kevin and a vasodilator could also be added if needed. The patient should followup as an outpatient in the office.
[2019-09-16] MEDS ORDERED: METOPROLOL TART 25 MG TABLET PO ONE (12:00)
[2019-09-16 12:04] VITALS: BP 164/110
[2019-09-16] MEDS ORDERED: DULO60CA35 PO (12:17)
--- NOTE | 2019-09-16 12:19 | DS.PDOC ---
Discharge Summary General Date of Admission Sep 12, 2019 at 23:56 Date of Discharge 09/16/2019 Discharge Summary DISCHARGE DIAGNOSIS: Acute metabolic encephalopathy possibly secondary alcohol withdrawal SECONDARY DIAGNOSIS: 1 History of alcohol abuse. 2. Hypertension 3. PENNY with metabolic acidosis 4. Bilateral non-obstructing nephrolithiasis in the lower poles 5. Back pain status post laminectomy May 2019 6. Secondary hyperparathyroidism 7. Anxiety/Depression PROCEDURES PERFORMED DURING STAY: Lumber puncture: no CSF could be obtained. EE09/14/2019 This EEG in awake, drowsy states, stage II sleep is abnormal due to presence of generalized slowing, disorganization of background and several bilateral frontally predominant triphasic waves consistent with nonspecific diffuse cerebral dysfunction such as seen in encephalopathy due to multiple potential causes, toxic, metabolic, infectious, autoimmune, medication related or multifocal structural brain abnormalities. No clear epileptiform abnormalities were seen. CONSULTANTS: Nephrology, Dr. Norman [facility] COURSE: This is a 49-year-old male who was brought into our ER in mental status. The patient was admitted to ICU floor for a workup because he has significant a Ki-1 admitted and was unable to respond to questions. After e xtensive workup The Patient Was Going through Alcohol Withdrawals. He had EEG lumbar punctures multiple imaging of his head and brain which were inconclusive. He did have an ultrasound of his abdomen which showed fatty liver . He also had 2 nonobstructing kidney stones bilaterally. Not complaining of any back pain set stated that he is to follow-up with his outpatient. On the day of discharge sundeep ents blood pressure medications had to be hold because of his a resolveing PENNY, was not back to baseline. We held his lisinopril and discharge him on amlodipine 10 mg daily. Patient was agreeable to going to [facility] in the future, wants to try to abstain from drinking. Was advised that he has follow-up with Dr. Norman in 2-3 weeks to make sure kidney function is improving. The medications were sent t o the pharmacy. DISCHARGE MEDICATIONS: Please see below. ALLERGIES: Please see below. SUBJECTIVE: Patient examined this morning. He states shes feeling much better and is excited to go home today he has no complaints. Denies chest pain, shortness, breath, nausea, vomiting, fevers, chills OBJECTIVE: PHYSICAL EXAMINATION: GENERAL: 49-year-old male sitting up in the bed alert and oriented 3 ap propriately answering questions appears stated age does not appear in acute distress. HEENT: Atraumatic, normacephalic, flush skin, pupils equal round and reactive, moist mucous membranes, no JVD CARDIOVASCULAR: S1 S2 regular no additional heart sounds appreciated RESPIRATORY: Clear to auscultation bilaterally no wheezes, rhonchi or rales ABDOMINAL: Bowel sounds present abdomen soft and nontender, minimally distended with no rebounding or guarding EXTREMITIES: No clubbing cyanosis or edema, bilateral dry feet with minimal cracks with no oozing, erythema or tenderness. NEUROLOGICAL: AO3. Spontaneously moving all muscles appropriately. No asterixis bilaterally in upper extremity. No neurological deficits appreciated. Appropriately answering questions. LABORATORY DATA, MICROBIOLOGY: Please see below. IMAGING STUDIES: Head CT: Impression: 1. 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 Correlation with MRI is recommended if not previously evaluated. 2. Otherwise unremarkable head CT. No acute findings. Chest X-Ray: Impression: No acute cardiopulmonary process appreciated. DISPOSITION: Home DISCHARGE CONDITION: Improved and Stable FOLLOW UP: 1 f.u. with pcp in 7-10 days and recheck BMP at that time and BP control 2. f.u. with nephro in 2-3 weeks. 3. 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 4. please do not take aleve or any nsaids for pain relief. 5. if symptoms worsen or return please call your pcp or return to the ER. ACTIVITY: As prior to admission DIET: As prior to admission TIME SPENT ON DISCHARGE: 50 minutes Vital Signs/I&Os Vital Signs Date Time Temp Pulse Resp B/P (MAP) Pulse Ox O2 Delivery O2 Flow Rate FiO2 09/16/19 12:04 94 164/110 09/16/19 07:37 98.1 18 98 Room Air I&O- Last 24 Hours up to 6 AM 09/16/19 06:00 Intake Total 2305 ml Output Total 1125 ml Balance 1180 ml Laboratory Data Labs 24H Laboratory Tests 2 09/16/19 05:28: Nucleated Red Blood Cells % (auto) 0.0, Anion Gap 6L, Glomerular Filtration Rate 32.3L, Calcium Level 8.8, Magnesium Level 1.6L CBC/BMP Laboratory Tests 09/16/19 05:28 Discharge Medications Scheduled Amlodipine Besylate (Amlodipine Besylate) 10 Mg Tablet, 1 TAB PO DAILY Duloxetine HCl (Duloxetine HCl) 60 Mg Capsule.dr, 60 MG PO DAILY, (Reported) Ergocalciferol (Vitamin D2) (Vitamin D2) 50,000 Units Cap, 50,000 UNITS PO QWEEK Folic Acid (Folic Acid) 1 Mg Tablet, 1 MG PO DAILY Multivitamins (Thera M Plus Tablet) 1 Each Tablet, 1 TAB PO DAILY Scheduled PRN Hydroxyzine HCl (Hydroxyzine HCl) 50 Mg Tablet, 50 MG PO BID PRN for ANXIETY, (Reported) Miscellaneous Medications [Patient Comments] , (Reported) PATIENT UNABLE TO ANSWER QUESTIONS ABOUT HIS MEDICATION HISTORY. ADULTS PRESENT UNABLE TO ANSWER QUESTIONS OTHER THAN TO CONFIRM PHARMACY Allergies Coded Allergies: No Known Allergies (Unverified , 07/14/19) GME ATTESTATION GME ATTESTATION My faculty preceptor for this patient encounter was physically present during the encounter and was fully available. All aspects of the patient interview, examination, medical decision making process, and medical care plan development were reviewed and approved by the faculty preceptor. The faculty preceptor is aware and concurs with the plan as stated in the body of this note and will attest to such by his/her cosignature. ATTENDING NOTE 49 yo man who was found down and admitted with AMS in the setting of alcohol use disorder and found to have a severe PENNY and metabolic acidosis requiring nephrology consult and bicarb gtt, CIWA protocol, noncon head CT that showed no acute intracranial pathology, fluids and high dose thiamine and folate repletion. His PENNY eventually improved, mentation returned to AOx3 and baseline and withdrawal resolved. He is now being discharged home with plan to follow up with PCP and encouraged to quit consuming alcohol and encouraged to join an outpatient program. ALISSA KELLY DO Sep 16, 2019 12:19 ARTHUR OG MD Sep 17, 2019 09:10
[2019-09-16 14:22] LABS: UPEP INTERPRETATION NO M-SPIKE NOTED; URINE VOLUME RANDOM ML
[2019-09-21 00:06] LABS: VITAMIN B1 LEVEL WHOLE BLOOD 126.8 nmol/L (66.5-200.0)
== END 2019-09-16 12:56 | disposition home or self-care (01) | DRG 469 ==
LOC: M ED 20:45 → M ED INP 23:56 → ENRESERVTM 09-13 00:19 → ENRESERVDT 09-13 00:19 → M ICU 09-13 01:12 → M PCU 09-14 16:35
PROVIDERS: ADMIT Internal Medicine; ATTEND Internal Medicine
PROC: 009U3ZX Drainage of Spinal Canal, Percutaneous Approach, Diagnostic (ICD-10-PCS; principal; 2019-09-13)
DX: N17.9 Acute kidney failure, unspecified (principal); G93.41 Metabolic encephalopathy; E87.2 Acidosis; R56.9 Unspecified convulsions; E83.51 Hypocalcemia; F10.21 Alcohol dependence, in remission; I10 Essential (primary) hypertension; F41.9 Anxiety disorder, unspecified; F32.9 Major depressive disorder, single episode, unspecified; Z98.1 Arthrodesis status; G89.29 Other chronic pain; M54.5 Low back pain; D72.829 Elevated white blood cell count, unspecified; D32.9 Benign neoplasm of meninges, unspecified; E66.9 Obesity, unspecified; Z68.34 Body mass index [BMI] 34.0-34.9, adult; E86.0 Dehydration; R80.9 Proteinuria, unspecified; R31.9 Hematuria, unspecified; R41.82 Altered mental status, unspecified; R74.0 Nonspecific elevation of levels of transaminase and lactic acid dehydrogenase [LDH]; E51.2 Wernicke's encephalopathy; Z79.899 Other long term (current) drug therapy; N25.81 Secondary hyperparathyroidism of renal origin

== ENCOUNTER → 2019-11-19 | Outpatient (REF) | payer OTHER, MEDICAID ==
[~2019-11-19] MED LIST changes: +AMLO10TA5 PO; +DULO60CA35 PO; +FOLI1TAB11 PO; +HYDR50TA70 PO; +LISI40TA PO; +PATIENT COMMENTS; +VITA50005 PO; +VITMTA PO
[2019-11-19 17:45] LABS: ALBUMIN 3.9 GM/DL (3.2-5.2); ALT/SGPT 126 U/L (12-78); BASO # 0.1 10^3/uL (0.0-0.2); BASO % 0.7 % (0.0-1.0); BILIRUBIN,TOTAL 1.4 MG/DL (0.2-1.0); BLOOD UREA NITROGEN 11 MG/DL (7-18); CALCIUM LEVEL 10.2 MG/DL (8.5-10.1); CARBON DIOXIDE LEVEL 28 MEQ/L (21-32); CHLORIDE LEVEL 96 MEQ/L (98-107); CREATININE FOR GFR 1.12 MG/DL (0.70-1.30); EOS # 0.1 10^3/uL (0.0-0.5); EOS % 0.5 % (0.0-3.0); FREE T4 1.04 NG/DL (0.76-1.46); GLOMERULAR FILTRATION RATE > 60.0 (>60); GLUCOSE, FASTING 161 MG/DL (70-100); HEMATOCRIT 40.7 % (42.0-52.0); HEMOGLOBIN 13.8 g/dl (13.5-17.5); LYMPH # 0.7 10^3/uL (1.5-5.0); LYMPH % 5.5 % (24.0-44.0); MEAN CORPUSCULAR HEMOGLOBIN 28.2 pg (27.0-33.0); MEAN CORPUSCULAR HGB CONC 33.9 g/dl (32.0-36.5); MEAN CORPUSCULAR VOLUME 83.2 fl (80.0-96.0); MONO # 1.7 10^3/uL (0.0-0.8); MONO % 12.5 % (0.0-5.0); NEUTROPHILS # 10.6 10^3/uL (1.5-8.5); NEUTROPHILS % 80.1 % (36.0-66.0); PLATELET COUNT, AUTOMATED 269 10^3/uL (150-450); POTASSIUM SERUM 3.8 MEQ/L (3.5-5.1); RED BLOOD COUNT 4.89 10^6/uL (4.30-6.10); SODIUM LEVEL 131 MEQ/L (136-145); TOTAL PROTEIN 8.8 GM/DL (6.4-8.2); TOTAL T3 96.7 NG/DL (60.0-181.0); WHITE BLOOD COUNT 13.2 10^3/uL (4.0-10.0)
== END ==
LOC: M LAB REF 16:41
PROVIDERS: ATTEND Family Medicine
DX: N28.9 Disorder of kidney and ureter, unspecified (principal); F41.8 Other specified anxiety disorders

== ENCOUNTER 2020-02-22 16:34 | Emergency (ER) | payer MEDICAID, OTHER ==
[~2020-02-22] VITALS: Ht 167.6 cm; Wt 106.6 kg
[~2020-02-22 16:34] MED LIST changes: -AMLO10TA5 PO; +AMLO1TAB25 PO; +CYCL-707 PO; -CYCL10TA PO
[2020-02-22] MEDS ORDERED: AMIT100TA (16:45)
[2020-02-22 18:35] LABS: BASO # 0.1 10^3/uL (0.0-0.2); BASO % 0.4 % (0.0-1.0); EOS # 0.1 10^3/uL (0.0-0.5); EOS % 0.3 % (0.0-3.0); HEMATOCRIT 34.6 % (42.0-52.0); HEMOGLOBIN 11.5 g/dl (13.5-17.5); LYMPH # 0.6 10^3/uL (1.5-5.0); LYMPH % 3.2 % (24.0-44.0); MEAN CORPUSCULAR HEMOGLOBIN 27.5 pg (27.0-33.0); MEAN CORPUSCULAR HGB CONC 33.2 g/dl (32.0-36.5); MEAN CORPUSCULAR VOLUME 82.8 fl (80.0-96.0); MONO # 1.3 10^3/uL (0.0-0.8); MONO % 7.3 % (0.0-5.0); NEUTROPHILS # 15.8 10^3/uL (1.5-8.5); PLATELET COUNT, AUTOMATED 407 10^3/uL (150-450); RED BLOOD COUNT 4.18 10^6/uL (4.30-6.10); WHITE BLOOD COUNT 18.2 10^3/uL (4.0-10.0)
[2020-02-22] MEDS ORDERED: OXAZEPAM 15 MG CAP PO ONE (18:45)
[2020-02-22 18:52] LABS: INR 1.3; PROTHROMBIN TIME 15.9 SECONDS (11.8-14.0)
[2020-02-22 18:53] LABS: PARTIAL THROMBOPLASTIN TIME 37.1 SECONDS (25.0-38.4)
[2020-02-22 19:12] LABS: ALBUMIN 2.3 GM/DL (3.2-5.2); ALT/SGPT 66 U/L (12-78); BILIRUBIN,DIRECT 1.1 MG/DL (0.0-0.2); BILIRUBIN,TOTAL 1.7 MG/DL (0.2-1.0); BLOOD UREA NITROGEN 3 MG/DL (7-18); CALCIUM LEVEL 8.5 MG/DL (8.5-10.1); CARBON DIOXIDE LEVEL 25 MEQ/L (21-32); CHLORIDE LEVEL 86 MEQ/L (98-107); CK-MB VALUE MASS 2.8 NG/ML (<3.6); CPK CREATINE PHOSPHOKINASE 68 U/L (39-308); CREATININE FOR GFR 1.13 MG/DL (0.70-1.30); ETHYL ALCOHOL (ETHANOL) 0.004 % (0.000-0.010); GLOMERULAR FILTRATION RATE > 60.0 (>60); GLUCOSE, FASTING 319 MG/DL (70-100); MB/CK RELATIVE INDEX 4.12 (< OR =4); NT-PRO BNP 165 PG/ML (<125); POTASSIUM SERUM 3.4 MEQ/L (3.5-5.1); SODIUM LEVEL 125 MEQ/L (136-145); TOTAL PROTEIN 7.5 GM/DL (6.4-8.2); TROPONIN I < 0.02 NG/ML (< 0.10)
[2020-02-22] MEDS ORDERED: LORazepam 2 MG/ML VIAL IV STA (19:54)
[2020-02-22] MEDS ORDERED: ISOVUE-370 76% 100ML VIAL As Ordered ONE (20:00)
--- NOTE | 2020-02-22 20:14 | REPVR ---
PROCEDURE INFORMATION: Exam: US Duplex Lower Extremity Veins, Bilateral Exam date and time: 02/22/2020 7:54 PM Age: 49 years old Clinical indication: Edema, localized; Lower extremity, bilateral; Additional info: Edema R/O dvt TECHNIQUE: Imaging protocol: Real-time duplex ultrasound of the extremities with 2-D claros scale, color Doppler flow and spectral waveform analysis with image documentation. Complete exam focused on the bilateral lower extremity veins. COMPARISON: No relevant prior studies available. FINDINGS: Right deep veins: Unremarkable. The common femoral, femoral, proximal profunda femoral and popliteal veins are patent without thrombus. Normal Doppler waveforms. Normal compressibility and/or augmentation response. Right superficial veins: Saphenofemoral junction is patent without thrombus. Left deep veins: Unremarkable. The common femoral, femoral, proximal profunda femoral and popliteal veins are patent without thrombus. Normal Doppler waveforms. Normal compressibility and/or augmentation response. Left superficial veins: Saphenofemoral junction is patent without thrombus. Soft tissues: Unremarkable. IMPRESSION: No DVT of bilateral lower extremity veins. Electronically signed by: Adriel Ocasio On 02/22/2020 20:13:45 PM
[2020-02-22 20:21] VITALS: BP 168/98
--- NOTE | 2020-02-22 21:05 | REPVR ---
PROCEDURE INFORMATION: Exam: CT Angiography Chest With Contrast Exam date and time: 02/22/2020 8:06 PM Age: 49 years old Clinical indication: Shortness of breath; Additional info: SOB, tachycardia TECHNIQUE: Imaging protocol: Computed tomographic angiography of the chest with intravenous contrast. 3D rendering: MIP and/or 3D reconstructed images were created by the technologist. Radiation optimization: All CT scans at this facility use at least one of these dose optimization techniques: automated exposure control; mA and/or kV adjustment per patient size (includes targeted exams where dose is matched to clinical indication); or iterative reconstruction. Contrast material: ISOVUE 370; Contrast volume: 75 ml; Contrast route: INTRAVENOUS (IV); COMPARISON: CR PORTABLE CHEST X-RAY 02/22/2020 6:12 PM FINDINGS: Pulmonary arteries: Normal. No pulmonary emboli. Aorta: Unremarkable. No aortic aneurysm. No aortic dissection. Lungs: Mild basilar atelectasis. No airspace infiltrates or masses. Pleural space: Trace right pleural effusion. No pneumothorax. Heart: Unremarkable. No cardiomegaly. No pericardial effusion. Lymph nodes: Scattered mildly mediastinal lymph nodes. Liver: There is hepatomegaly and hepatic steatosis. Bones/joints: Unremarkable. No acute fracture. Soft tissues: Unremarkable. IMPRESSION: 1. No acute findings. 2. Mildly enlarged mediastinal lymph nodes of uncertain significance. 3. Hepatic steatosis and hepatomegaly. Electronically signed by: Garrett Freire On 02/22/2020 21:05:03 PM
[2020-02-22] MEDS ORDERED: OXAZ30CA2 PO (21:21)
--- NOTE | 2020-02-23 05:25 | REP ---
CHEST, SINGLE VIEW: Single view of the chest is performed and compared to prior study of 09/12/2019. There is poor ventilation. There is mild bibasilar atelectatic change with no consolidating infiltrate. Heart and mediastinum appear somewhat magnified and unchanged since prior study. Electronically Signed by Justus Otero MD 02/23/2020 11:11 P
--- NOTE | 2020-02-23 17:43 | ECGEPIP ---
[facility] - ED Test Date: 2020-02-22 Pat Name: CARRI JACOB Department: Room: - Gender: Male Transportation Officer: : 1970 Requested By: JAMI Vegas Order Number: [id number] Reading MD: Jeri Olmstead Measurements Intervals [place] Rate: 126 P: 74 [place]: 196 QRS: 20 QRSD: 94 T: 14 QT: 404 QTc: 586 Interpretive Statements SINUS TACHYCARDIA MODERATE ST DEPRESSION INCREASED RATE 2/2/ Electronically Signed on 02-23-2020 17:43:31 EDT by Jeri Olmstead
== END 2020-02-22 21:34 | disposition left against medical advice (07) ==
LOC: M ED 16:34
DX: R22.42 Localized swelling, mass and lump, left lower limb (principal); R06.02 Shortness of breath; I10 Essential (primary) hypertension; F33.9 Major depressive disorder, recurrent, unspecified; F41.9 Anxiety disorder, unspecified; Z79.899 Other long term (current) drug therapy; F10.10 Alcohol abuse, uncomplicated
CPT/HCPCS: 71045; 71275; 80048; 80076; 82550; 82553; 83880; 84439; 84443; 85025; 85610; 85730; 87486; 87581; 87633; 87798; 93005; 93041; 93970; 94760; 96374; 99285; G0480; J2060; Q9967

== ENCOUNTER 2021-04-04 14:00 | Emergency (ER) | payer OTHER ==
[~2021-04-04 14:00] MED LIST changes: +AMIT100TA PO; +ERGO500029 PO; -LISI-538 PO; +LISI20TA33 PO; -LISI40TA PO; +LISI40TA4 PO; +OXAZ30CA2 PO; -VITA50005 PO
[2021-04-04 14:35] VITALS: BP 111/50
== END 2021-04-04 14:29 | disposition left against medical advice (07) ==
LOC: M ED 14:00 → EDBD 14:00 → M ED 14:29
DX: Z53.29 Procedure and treatment not carried out because of patient's decision for other reasons (principal)

== ENCOUNTER 2021-04-06 13:28 | Emergency (ER) | payer OTHER ==
[~2021-04-06] VITALS: Ht 167.6 cm; Wt 100.0 kg
[2021-04-06] MEDS ORDERED: NS 1,000 ML IV ONE ×2 (15:15)
[2021-04-06 15:17] LABS: MEAN CORPUSCULAR HEMOGLOBIN 30.7 pg (27.0-33.0); MEAN CORPUSCULAR VOLUME 82.9 fl (80.0-96.0); PLATELET COUNT, AUTOMATED 107 10^3/uL (150-450); RED BLOOD COUNT 2.28 10^6/uL (4.30-6.10)
[2021-04-06 15:28] LABS: INR 1.28; PROTHROMBIN TIME 16.4 SECONDS (12.7-14.5)
[2021-04-06 15:29] LABS: PARTIAL THROMBOPLASTIN TIME 43.5 SECONDS (25.9-37.0)
[2021-04-06 15:35] LABS: ETHYL ALCOHOL (ETHANOL) 0.003 % (0.000-0.010)
[2021-04-06 15:46] LABS: HEMATOCRIT 18.9 % (42.0-52.0)
[2021-04-06 15:49] LABS: BASOPHILS 1 % (0-1); EOSINOPHILS 1 % (0-3); LYMPHOCYTES 5 % (16-44); MONOCYTES 6 % (0-5); NEUTROPHILS 84 % (28-66)
[2021-04-06 15:51] LABS: ANISOCYTOSIS 2+; PLATELET ESTIMATE DECREASED (NORMAL)
[2021-04-06 15:56] LABS: TOXIC VACUOLATION 1+
[2021-04-06 15:57] LABS: TARGET CELLS 1+
[2021-04-06 15:58] LABS: STOMATOCYTES 1+
[2021-04-06 16:04] LABS: ALBUMIN 1.9 GM/DL (3.2-5.2); BILIRUBIN,DIRECT 5.8 MG/DL (0.0-0.2); BILIRUBIN,TOTAL 7.1 MG/DL (0.2-1.0); MAGNESIUM LEVEL 1.7 MG/DL (1.8-2.4); TOTAL PROTEIN 6.8 GM/DL (6.4-8.2)
--- NOTE | 2021-04-06 16:45 | REP ---
INDICATION: abdominal distention, constipation. COMPARISON: None TECHNIQUE: Axial noncontrast images from the lung bases to the pubic symphysis with coronal and sagittal reformations. This CT examination was performed using the following dose reduction techniques: Automated exposure control, adjustment of mA and/or kv according to the patient's size, and use of iterative reconstruction technique. FINDINGS: Lung bases demonstrate bibasilar atelectasis and pulmonary vascular congestion along with small to moderate pericardial effusion without cardiomegaly. Abdomen demonstrates hepatomegaly and moderate to significant diffuse ascites. Moderate stranding throughout the mesentery is noted with scattered small innumerable lymph nodes. Mild splenomegaly is suggested. Pancreas, gallbladder, bilateral adrenal glands and kidneys appear grossly normal by noncontrast evaluation. The enteric system is without obvious obstruction or definite acute inflammatory process. No free air to suggest perforation. Pelvis demonstrates bladder with small amount of dependent gravel. Prostate gland is unremarkable. No significant retroperitoneal adenopathy. Abdominal aorta without aneurysm. Musculoskeletal structures are intact. IMPRESSION: 1. Abnormal findings as described above including pericardial effusion, pulmonary vascular congestion and significant ascites along with hepatomegaly suggests the possibility of underlying hepatocellular disease and requires further investigation. 2. Lung bases demonstrate moderate bibasilar atelectasis. 3. No further obvious acute abdominal process identified. <Electronically signed by Khari Zavala > 04/06/21 [id number]
--- NOTE | 2021-04-06 16:46 | REP ---
INDICATION: cough and sputum. concern for pneumonia COMPARISON: 02/22/2020 TECHNIQUE: Portable AP view of the chest FINDINGS: There is a known small to moderate pericardial effusion based on accompanying CT. Bibasilar atelectasis noted. No obvious effusion. No pneumothorax. Skeletal structures intact. IMPRESSION: Bibasilar atelectasis. Pericardial effusion confirmed by accompanying CT. <Electronically signed by Khari Zavala > 04/06/21 [id number]
[2021-04-06] MEDS ORDERED: AMLO1TAB25 PO (17:53)
[2021-04-06] MEDS ORDERED: VITMTA PO (18:02)
[2021-04-06] MEDS ORDERED: HOME MED LIST COMPLETE! XX SCH (18:15)
[2021-04-06] MEDS ORDERED: cefTRIAXone SOD 1 GM in D5W MINI-BAG PLUS 50 ML IV ONE (19:55)
--- NOTE | 2021-04-06 19:58 | REPVR ---
PROCEDURE INFORMATION: Exam: CT Chest Without Contrast; Diagnostic Exam date and time: 04/06/2021 7:10 PM Age: 50 years old Clinical indication: Abnormal findings; Abnormal radiologic exam of lung or chest; Additional info: Pericardial effusion TECHNIQUE: Imaging protocol: Diagnostic computed tomography of the chest without contrast. 3D rendering (Not supervised by radiologist): MIP and/or 3D reconstructed images were created by the technologist. Radiation optimization: All CT scans at this facility use at least one of these dose optimization techniques: automated exposure control; mA and/or kV adjustment per patient size (includes targeted exams where dose is matched to clinical indication); or iterative reconstruction. COMPARISON: 1. CT ANGIO CHEST 2020-02-22 20:02 2. CR Chest, 1 view 2021-04-06 16:28 FINDINGS: Lungs: Scattered subsegmental pulmonary atelectasis. Hypoexpanded lungs. Pleural spaces: Unremarkable. No pneumothorax. No pleural effusion. Heart: Cardiac enlargement with a small pericardial effusion. Mediastinal space: Tracheal malacia. Aorta: Unremarkable. No aortic aneurysm. Lymph nodes: Mild mediastinal adenopathy. Liver: Hepatic steatosis. Spleen: Splenomegaly. Intraperitoneal space: Abdominal ascites. Bones/joints: Unremarkable. No acute fracture. Soft tissues: Unremarkable. IMPRESSION: 1. Cardiac enlargement with a small pericardial effusion. 2. Mild mediastinal adenopathy. 3. Hepatic steatosis. Splenomegaly. Abdominal ascites. Electronically signed by: Charan Mcknight On 04/06/2021 19:58:34 PM
--- NOTE | 2021-04-06 21:25 | ECGEPIP ---
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
[2021-04-06 22:22] VITALS: BP 114/56
[2021-04-06 22:40] VITALS: BP 112/55
[2021-04-06 23:25] VITALS: BP 114/57
[2021-04-07 00:20] VITALS: BP 107/59
[2021-04-07 00:30] VITALS: BP 104/64
--- NOTE | 2021-04-07 13:23 | ECHO ---
ECHOCARDIOGRAM DATE OF PROCEDURE: 04/06/2021 Age: 50 Gender: Male Height: 66 inches Weight: 220 pounds. REFERRING PHYSICIAN: Khari Broderick M.D. PATIENT LOCATION: Emergency room. REASON FOR THE TESTING: Pericardial effusion. MEASUREMENTS: 2D Measurements: IVS 1.0 cm LVPW 1.3 cm LV 5.7 cm Aortic root 3.3 cm LA 4.5 cm IVC 1.9 cm Doppler Measurements: Peak velocity across the aortic valve 2.1 m/sec Peak velocity across the LVOT 1.6 m/sec Peak gradient across the aortic valve 18 mmHg Mean gradient across the aortic valve 11 mmHg Mitral E 1.2 Mitral A 0.7 with a ratio of 1.7 2D COMMENTS: 1. Subsequently, the left ventricle is normal in size as well as the left ventricular wall thickness. The left ventricle is hyperdynamic with an estimated global left ventricular systolic ejection fraction of 65-70%. 2. The left atrium appeared to be mildly enlarged on limited views. The right atrium and the right ventricle were not well visualized. 3. The atrial septum appeared to be normal without evidence of defect or shunt. 4. Normal aortic root. 5. Small to moderate pericardial effusion noted. No evidence of cardiac tamponade. 6. Mildly calcified aortic valve. Leaflet excursion appeared to be normal. Minimally calcified mitral annulus with normal anterior mitral valve leaflet motion. Tricuspid valve appeared to be normal in limited views. The pulmonic valve and proximal pulmonary artery branches were not well visualized. 7. The inferior vena cava is minimally enlarged. DOPPLER: No significant valvular abnormalities detected. IMPRESSION: 1. Technically limited study due to poor acoustic window. 2. Normal left ventricular systolic function with a hyperdynamic left ventricle. Assessment of the left ventricular diastolic function was normal. 3. Aortic valve sclerosis with trivial aortic stenosis, but no aortic regurgitation. 4. Small to moderate pericardial effusion noted in limited views. No evidence of cardiac tamponade. 5. This study was technically limited due to poor acoustic window.
== END 2021-04-07 01:18 | disposition other institution (70) ==
LOC: M ED 13:28
DX: K92.2 Gastrointestinal hemorrhage, unspecified (principal); D64.9 Anemia, unspecified; R41.82 Altered mental status, unspecified; J98.11 Atelectasis; R18.8 Other ascites; F10.10 Alcohol abuse, uncomplicated; R91.8 Other nonspecific abnormal finding of lung field; I31.3 Pericardial effusion (noninflammatory); I35.0 Nonrheumatic aortic (valve) stenosis; K76.0 Fatty (change of) liver, not elsewhere classified; R16.1 Splenomegaly, not elsewhere classified; I10 Essential (primary) hypertension; F41.9 Anxiety disorder, unspecified; Z79.899 Other long term (current) drug therapy
CPT/HCPCS: 36415; 36430; 71045; 71250; 74176; 80076; 82077; 82140; 83690; 83735; 85025; 85610; 85730; 86850; 86900; 86901; 86920; 87798; 93005; 93041; 93306; 96374; 99285; J0696; P9016